=== PATIENT | female | born 1940 | race Caucasian/White ===

== ENCOUNTER → 2017-08-30 | Outpatient (REF) | payer MEDICARE, OTHER ==
[~2017-08-30] MED LIST: AMLO-96 PO; BUDE10.2 INH; CALC-649 PO; CHOL100052 PO; CHOL400C10 PO; EST3 PO; ESTR-33 PO; ESTR0.62 PO; FISH OIL1 CAP PO; GABA-490 PO; HYDR-2966 PO; LEVO50TA86 PO; LIS10 PO; LOSA100T67 PO; LOSA50TA72 PO; MULT-1 PO; NAPR-744 PO; PAN40 PO; PANT40TA65 PO; PROP160C29 PO; WARF-1 PO; [UNRECOGNIZED DRUG - CODE] PO; symbicort IH
[2017-08-30 13:41] LABS: PLATELET COUNT, AUTOMATED 277 K/uL (150-450)
[2017-08-30 13:52] LABS: INR 2.98
== END ==
PROVIDERS: ATTEND Nurse Practitioner Family
DX: R07.9 Chest pain, unspecified (principal); R53.83 Other fatigue
CPT/HCPCS: 82040; 82247; 82310; 82374; 82435; 82565; 82947; 84075; 84132; 84155; 84295; 84443; 84450; 84460; 84484; 84520; 85025; 85379; 85610

== ENCOUNTER 2017-09-04 12:57 | Emergency (ER) | payer MEDICARE, OTHER ==
[~2017-09-04] VITALS: Ht 160 cm; Wt 63.5 kg
[~2017-09-04 12:57] MED LIST changes: -OSE75 PO; -SERT25TA90
[2017-09-04] MEDS ORDERED: SERT25TA90 (13:08)
--- NOTE | 2017-09-04 13:13 | ER Report ---
History and Physical Time Seen By MD: 13:13 Hx. of Stated Complaint: PT REPORTS DIZZINESS, SHORTNESS OF BREATH, WEAKNESS FOR A WEEK (LINDA NICHOLAS-) HPI/ROS CHIEF COMPLAINT: Dizziness HISTORY OF PRESENT ILLNESS: This is a 77-year-old female who presents to the emergency department for dizziness. The patient was seen at [facility] urgent care this morning had a complete workup and decided to come to the emergency department with her for evaluation of her dizziness. The dizziness in addition to weakness have been going on for roughly 1 week according to the patient. The dizziness is only with positional changes. She was started on lasix about 1 week ago, with minimal output after the first 1-2 days. The patient denies shortness of breath at this time. Patient denies chest pain. No aches, chills, cold like symptoms. Patient also states that it has been at least a day or 2 since her last bowel movement, she has been straining to have bowel movements with little production. Patient also states that she's been taking MiraLAX to help with this. REVIEW OF SYSTEMS: Constitutional: No fever, no chills. Eyes: No discharge. ENT: No sore throat. Cardiovascular: No chest pain, no palpitations. Respiratory: No cough, no shortness of breath. Gastrointestinal: As above. Genitourinary: No hematuria. Musculoskeletal: No back pain. Skin: No rashes. Neurological: As above. (LINDA NICHOLAS-SARA) Allergies: Uncoded Allergies: narcotic (Adverse Reaction, Intermediate, nausea with narctics mariel codeine , 06/18/17) Home Meds Active Scripts Oseltamivir Phosphate (TAMIFLU) 75 Mg Cap, 75 MG PO DAILY, #10 CAP Prov:LINDA NICHOLAS 09/04/17 Levothyroxine Sodium (LEVOTHYROXINE SODIUM) 50 Mcg Tablet, 50 MCG PO QDAY, #90 TAB 4 Refills Prov:HUEY CASILLAS MD 08/14/17 Warfarin Sodium (COUMADIN) 5 Mg Tablet, 5 MG PO QDAY for 30 Days, #45 TAB 3 Refills Prov:HUEY CASILLAS MD 08/14/17 Hydrochlorothiazide (HYDROCHLOROTHIAZIDE) 25 Mg Tablet, 0.5 TAB PO QDAY, #30 TAB 3 Refills one half pill daily starting 07/02/17 Prov:HUEY CASILLAS MD 07/09/17 Pantoprazole Sodium (PANTOPRAZOLE SODIUM) 40 Mg Tablet.dr, 1 TAB PO QDAY, #90 TAB.SR 4 Refills Prov:HUEY CASILLAS MD 07/09/17 Reported Medications Sertraline Hcl (SERTRALINE HCL) 25 Mg Tablet, QDAY 09/04/17 Past Medical/Surgical History Patient has a past medical and surgical history of migraines, recently diagnosis of A. fib, hypertension, mild shortness of breath, problems with swallowing and vomiting after eating, acid reflux, hiatal hernia repair, menopause, right ankle injury, right leg injury, wears glasses, hysterectomy, thumb surgery, back surgery, deviated septum repair. (LINDA NICHOLAS [facility]-) Reviewed Nurses Notes: Yes (LINDA NICHOLASP-SARA) Smoking Status: Never Smoker (LINDA NICHOLAS [facility]-) Constitutional Vital Sign - Last 24 Hours 09/04/17 09/04/17 09/04/17 09/04/17 13:03 13:05 13:27 13:30 Temp 98.2 Pulse 105 Resp 18 20 B/P (MAP) 128/81 (97) 128/81 122/85 (97) Pulse Ox 93 97 O2 Delivery Room Air 09/04/17 09/04/17 09/04/17 09/04/17 13:57 14:00 14:10 14:13 Pulse 81 Resp 13 B/P (MAP) 124/85 (98) 107/73 (84) 98/73 (81) 09/04/17 09/04/17 09/04/17 09/04/17 14:15 14:18 14:20 14:50 Pulse 100 104 107 Resp 31 14 B/P (MAP) 88/63 (71) 107/73 (84) 98/73 (81) 88/63 (71) Pulse Ox 49 09/04/17 09/04/17 09/04/17 09/04/17 15:00 15:05 15:10 15:15 Pulse 81 84 86 Resp 12 14 11 B/P (MAP) 128/72 (90) 09/04/17 09/04/17 09/04/17 09/04/17 15:20 15:22 15:23 15:25 Pulse 89 89 Resp 12 13 B/P (MAP) 125/86 (99) 120/75 (90) 111/75 (87) 09/04/17 09/04/17 09/04/17 09/04/17 15:26 15:30 15:35 15:40 Pulse 86 82 91 82 95 93 Resp 14 13 10 B/P (MAP) 125/86 (99) 128/73 (91) 120/75 (90) 111/75 (87) 09/04/17 09/04/17 09/04/17 09/04/17 15:45 15:50 15:55 16:00 Pulse 82 86 86 85 Resp 16 10 9 16 B/P (MAP) 135/67 (89) 09/04/17 16:05 Pulse 80 Resp 13 (JOS PAYNE MD) Physical Exam General Appearance: The patient is alert, has no immediate need for airway protection and no signs of toxicity. Eyes: Pupils equal and round no pallor or injection. ENT, Mouth: Mucous membranes are moist. Dry geographic tongue. Respiratory: There are no retractions, lungs are clear to auscultation. Cardiovascular: Irregular rate and rhythm, no murmurs, clicks or rubs. Gastrointestinal: Abdomen is soft and non tender, no masses, bowel sounds normal. Neurological: Alert and oriented 4. Moving all extremities. Following all commands. No focal neural deficits. Skin: Warm and dry, no rashes. Musculoskeletal: Neck is supple non tender. Extremities are nontender, nonswollen and have full range of motion. DIFFERENTIAL DIAGNOSIS: After history and physical exam differential diagnosis was considered for dizziness including but not limited to peripheral and central causes of vertigo, orthostatic causes including dehydration, and blood loss, constipation. (LINDA NICHOLAS-) Medical Decision Making Data Points Laboratory Hematology Test 09/04/17 14:39 09/04/17 14:40 Urine Color Straw Urine Clarity Clear Urine pH 5.0 pH (4.8-9.5) Urine Specific [place] 1.006 Urine Protein Negative mg/dL (NEGATIVE) Urine Glucose (UA) Negative mg/dL (NEGATIVE) Urine Ketones Trace mg/dL (NEGATIVE) Urine Blood Negative (NEGATIVE) Urine Nitrite Negative (NEGATIVE) Urine Bilirubin Negative (NEGATIVE) Urine Urobilinogen Negative mg/dL (0.2-1.9) Urine Leukocyte Esterase Negative (NEGATIVE) Urine RBC <1 /HPF (0-2/HPF) Urine WBC None /HPF (0-5/HPF) Urine Squamous Epithelial Cells Few /LPF (</=FEW) Urine Bacteria Negative /HPF (NONE-FEW) Urine Hyaline Casts Many /LPF (NONE-FEW) Urine Mucus None /HPF (NONE-FEW) Influenza Type A Antigen Negative (NEGATIVE) Influenza Type B Antigen Negative (NEGATIVE) Chemistry Test 09/04/17 14:39 09/04/17 14:40 Urine Color Straw Urine Clarity Clear Urine pH 5.0 pH (4.8-9.5) Urine Specific [place] 1.006 Urine Protein Negative mg/dL (NEGATIVE) Urine Glucose (UA) Negative mg/dL (NEGATIVE) Urine Ketones Trace mg/dL (NEGATIVE) Urine Blood Negative (NEGATIVE) Urine Nitrite Negative (NEGATIVE) Urine Bilirubin Negative (NEGATIVE) Urine Urobilinogen Negative mg/dL (0.2-1.9) Urine Leukocyte Esterase Negative (NEGATIVE) Urine RBC <1 /HPF (0-2/HPF) Urine WBC None /HPF (0-5/HPF) Urine Squamous Epithelial Cells Few /LPF (</=FEW) Urine Bacteria Negative /HPF (NONE-FEW) Urine Hyaline Casts Many /LPF (NONE-FEW) Urine Mucus None /HPF (NONE-FEW) Influenza Type A Antigen Negative (NEGATIVE) Influenza Type B Antigen Negative (NEGATIVE) Urinalysis Test 09/04/17 14:39 Urine Color Straw Urine Clarity Clear Urine pH 5.0 pH (4.8-9.5) Urine Specific [place] 1.006 Urine Protein Negative mg/dL (NEGATIVE) Urine Glucose (UA) Negative mg/dL (NEGATIVE) Urine Ketones Trace mg/dL (NEGATIVE) Urine Blood Negative (NEGATIVE) Urine Nitrite Negative (NEGATIVE) Urine Bilirubin Negative (NEGATIVE) Urine Urobilinogen Negative mg/dL (0.2-1.9) Urine Leukocyte Esterase Negative (NEGATIVE) Urine RBC <1 /HPF (0-2/HPF) Urine WBC None /HPF (0-5/HPF) Urine Squamous Epithelial Cells Few /LPF (</=FEW) Urine Bacteria Negative /HPF (NONE-FEW) Urine Hyaline Casts Many /LPF (NONE-FEW) Urine Mucus None /HPF (NONE-FEW) (JOS PAYNE MD) EKG/Imaging EKG Interpretation 12 lead EKG: Rhythm: Atrial fibrillation, 98 bpm. [place]: normal QRS: normal ST segments: normal No significant changes from the 08/24/2017 EKG. Imaging FACILITY: [facility] PATIENT NAME: June Overton : 1940 MR: [id number] V: [id number] EXAM DATE: ORDERING PHYSICIAN: LINDA NICHOLAS TECHNOLOGIST: Location: [facility] Patient: June Overton : 1940 Visit/Account:[id number] Date of Sevice: 09/04/2017 Acute abdomen with chest: HISTORY: Evaluate for constipation. COMPARISON: Chest x-ray 08/22/2017 FINDINGS: Upright and supine views of the abdomen and frontal view the chest were obtained. Bowel gas pattern is nonspecific without evidence of ileus, obstruction or free air. There is a small volume of stool in the descending and rectosigmoid colon. There are no calcifications identified of the kidneys or along the expected course of the ureters. Lumbar scoliosis convex to the right is present. Mild degenerative changes are present in the lumbar spine. Cardia mediastinal silhouette is within normal limits. There is no infiltrate, pleural effusion or pneumothorax. Pulmonary vasculature is normal. IMPRESSION: 1. Nonspecific bowel gas pattern. There is only a small volume of stool the colon which is nonspecific. There are no definitive findings of constipation. 2. No evidence of acute cardiopulmonary abnormality. Report Dictated By: Nguyen Agrawal MD at 09/04/2017 2:40 PM Report E-Signed By: Nguyen Agrawal MD at 09/04/2017 2:44 PM WSN:[id number] (LINDA NICHOLAS WEIGHT CALLER-BC) ED Course/Re-evaluation Clinical Indication for ER IV: Hydration, IV Access ED Course The patient was admitted to a room. A history and physical were obtained. Differential diagnoses were considered. IV was started. A 500 mL bolus of normal saline was given. A UA was collected which was negative. An EKG was obtained showing A. fib which was unchanged from her previous EKG. The urgent care lab studies were reviewed with the patient. I did feel at this time that the patient was under hydrated and after the 500 mL bolus of normal saline the patient states her dizziness improved and she was feeling better. Patient was negative for influenza. Her was positive for influenza. We did empirically treat her with Tamiflu. I also instructed the patient to stop her Lasix and continue with her other medications. I was also able to get a follow- up appointment scheduled with Dr. Murillo next week which the patient was pleased with. The patient was also encouraged to return to the emergency department for any other concerns or worsening symptoms. Patient had no other questions or concerns and was discharged home. Decision to Disposition Date: Sep 04, 2017 Decision to Disposition Time: 16:04 (LINDA NICHOLAS) Depart Departure Latest Vital Signs Vital Signs Date Time Temp Pulse Resp B/P (MAP) Pulse Ox O2 Delivery O2 Flow Rate FiO2 09/04/17 16:05 80 13 09/04/17 16:00 135/67 (89) 09/04/17 14:50 49 09/04/17 13:05 98.2 Room Air (JOS PAYNE MD) Impression: Primary Impression: Dehydration Additional Impression: UNSPECIFIED ATRIAL FIBRILLATION Condition: Improved Disposition: HOME OR SELF-CARE Referrals: MARSHALL MURILLO MD New Scripts Oseltamivir Phosphate (TAMIFLU) 75 Mg Cap 75 MG PO DAILY, #10 CAP Prov: LINDA NICHOLAS 09/04/17 Patient Instructions: A-fib (Atrial Fibrillation) (ED), Dehydration (ED) Additional Instructions: Drink plenty of fluids. Get plenty of rest. Stop taking the Lasix or (Furosemide). Continue taking your other medications as directed. Take the Tamiflu as indicated for possible prevention of nemesio the flu. You have a scheduled follow up appointment with Dr. Murillo September 11 at 11:[address]. Dr. Murillo may repeat some lab studies such as INR, your Coumadin level as well as your kidney function. May return to the ED for worsening symptoms. LEAVE SPECIALIST/PA consult with MD: Verbally (JOS PAYNE MD) Problem Qualifiers LINDA NICHOLAS Sep 04, 2017 13:13 JOS PAYNE MD Sep 04, 2017 13:41
[2017-09-04] MEDS ORDERED: NS(*) 0.9% 500 ML BAG 500 ML IV ONE (13:40)
--- NOTE | 2017-09-04 14:48 | RADIOLOGY IMAGING REPORT ---
FACILITY: [facility] [place] PATIENT NAME: June Overton : 1940 MR: [id number] V: [id number] EXAM DATE: ORDERING PHYSICIAN: LINDA NICHOLAS TECHNOLOGIST: Location: [facility] Patient: June Overton : 1940 Visit/Account:[id number] Date of Sevice: 09/04/2017 Acute abdomen with chest: HISTORY: Evaluate for constipation. COMPARISON: Chest x-ray 08/22/2017 FINDINGS: Upright and supine views of the abdomen and frontal view the chest were obtained. Bowel ga s pattern is nonspecific without evidence of ileus, obstruction or free air. There is a small volume of stool in the descending and rectosigmoid colon. There are no calcifications identified of the kidneys or along the expected course of the ureters. Lumbar scoliosis convex to the right is present. Mild degenerative changes are present in the lumbar spine. Cardia mediastinal silhouette is within normal limits. There is no infiltrate, pleural effusion or p neumothorax. Pulmonary vasculature is normal. IMPRESSION: 1. Nonspecific bowel gas pattern. There is only a small volume of stool the colon which is nonspeci fic. There are no definitive findings of constipation. 2. No evidence of acute cardiopulmonary abnormality. Report Dictated By: Nguyen Agrawal MD at 09/04/2017 2:40 PM Report E-Signed By: Nguyen Agrawal MD at 09/04/2017 2:44 PM WSN:[id number]
[2017-09-04 16:00] VITALS: BP 135/67
[2017-09-04] MEDS ORDERED: OSE75 PO (16:14)
--- NOTE | 2017-09-05 08:48 | EKG ---
FACILITY: [facility] [place] PATIENT NAME: LUZ MACIAS : [id number] MR: [id number] V: [id number] EXAM DATE: ORDERING PHYSICIAN: JOS PAYNE TECHNOLOGIST: TAMARA Tai Reason : SOB Blood Pressure : / mmHG Vent. Rate : 098 BPM Atrial Rate : 129 BPM P-R Int : 000 ms QRS Dur : 080 ms QT Int : 374 ms P-R-T Axes : 000 053 035 degrees QTc Int : 477 ms Atrial fibrillation Prolonged QT Abnormal ECG Confirmed by LILLIAN HANKINS ([id number]) on 09/05/2017 12:08:54 PM Referred By: ELMER Confirmed By:LILLIAN HANKINS
== END 2017-09-04 16:18 | disposition home or self-care (01) ==
LOC: ER 13:08
DX: I48.91 Unspecified atrial fibrillation (principal); E86.0 Dehydration
CPT/HCPCS: 74022; 81001; 87502; 93005; 96360; 96361; 99284; J7040

== ENCOUNTER → 2017-09-04 | Outpatient (REF) | payer MEDICARE, OTHER ==
[~2017-09-04] MED LIST changes: +OSE75 PO; +SERT25TA90
[2017-09-04 11:49] LABS: PLATELET COUNT, AUTOMATED 302 K/uL (150-450)
== END ==
PROVIDERS: ATTEND Nurse Practitioner Family
DX: R06.02 Shortness of breath (principal)
CPT/HCPCS: 82040; 82247; 82310; 82374; 82435; 82565; 82947; 83880; 84075; 84132; 84155; 84295; 84450; 84460; 84484; 84520; 85025

== ENCOUNTER → 2017-09-11 | Outpatient (CLI) | payer MEDICARE, OTHER ==
[~2017-09-11] MED LIST changes: +OSE75 PO; +POTA20TA10 PO; +SERT25TA90
== END ==
LOC: LAB 13:08
PROVIDERS: ATTEND Family Medicine
DX: S37.009A Unspecified injury of unspecified kidney, initial encounter (principal)
CPT/HCPCS: 36415; 82040; 82247; 82310; 82374; 82435; 82565; 82947; 84075; 84132; 84155; 84295; 84450; 84460; 84520

== ENCOUNTER → 2017-09-25 | Outpatient (CLI) | payer MEDICARE, OTHER ==
[2017-09-25 09:31] LABS: INR 1.32
== END ==
LOC: LAB 08:43
PROVIDERS: ATTEND Family Medicine
DX: Z51.81 Encounter for therapeutic drug level monitoring (principal); Z79.01 Long term (current) use of anticoagulants; E78.6 Lipoprotein deficiency; E86.0 Dehydration
CPT/HCPCS: 36415; 82040; 82247; 82310; 82374; 82435; 82565; 82947; 84075; 84132; 84155; 84295; 84450; 84460; 84520; 85610

== ENCOUNTER → 2017-09-27 | Outpatient (CLI) | payer MEDICARE, OTHER ==
[~2017-09-27] MED LIST changes: +METO25TA23 PO; +METO25TA93 PO
== END ==
LOC: RESP 08:00
PROVIDERS: ATTEND Family Medicine
DX: Z02.9 Encounter for administrative examinations, unspecified (principal)

== ENCOUNTER → 2017-10-24 | Outpatient (CLI) | payer MEDICARE, OTHER | LOC: LAB 11:18 | PROVIDERS: ATTEND Anesthesiology | DX: Z01.812 Encounter for preprocedural laboratory examination (principal); M19.90 Unspecified osteoarthritis, unspecified site; M79.672 Pain in left foot | CPT/HCPCS: 36415; 82040; 82247; 82310; 82374; 82435; 82565; 82947; 84075; 84132; 84155; 84295; 84450; 84460; 84520 ==

== ENCOUNTER → 2017-12-13 | Outpatient (CLI) | payer MEDICARE, OTHER ==
[~2017-12-13] MED LIST changes: +PANT20TA27 PO
== END ==
LOC: LAB 10:10
PROVIDERS: ATTEND Family Medicine
DX: R39.15 Urgency of urination (principal); R35.0 Frequency of micturition; R30.0 Dysuria
CPT/HCPCS: 81001

== ENCOUNTER → 2018-01-24 | Outpatient (CLI) | payer MEDICARE, OTHER ==
[~2018-01-24] MED LIST changes: +DICL100G39 TOP; +LISI5TAB25 PO; +OXYGENHOME INH
[2018-01-24 09:29] LABS: PLATELET COUNT, AUTOMATED 255 K/uL (150-450)
--- NOTE | 2018-01-24 09:58 | RADIOLOGY IMAGING REPORT ---
FACILITY: [facility] [place] PATIENT NAME: June Overton : 1940 MR: [id number] V: [id number] EXAM DATE: ORDERING PHYSICIAN: MARSHALL MURILLO TECHNOLOGIST: Location: [facility] [place] Patient: June Overton : 1940 Visit/Account:[id number] Date of Sevice: 01/24/2018 Technique: CHEST PA AND LAT HISTORY: SOB, h/o asthma Comparison studies: Chest radiographs August 22, 2017, CTA chest May 23, 2017 FINDINGS: Hazy bibasilar opacities are noted. The lung apices are clear. The cardiomediastinal silh ouette is unchanged. IMPRESSION: 1. Hazy bibasilar opacities which may be secondary to small pleural effusions. Additional considera tions include atelectasis or airspace process such as pneumonia. Report Dictated By: Chico Ramsey DO at 01/24/2018 9:52 AM Report E-Signed By: Chico Ramsey DO at 01/24/2018 9:55 AM WSN:[id number]
== END ==
LOC: LAB 08:58
PROVIDERS: ATTEND Family Medicine
DX: R91.8 Other nonspecific abnormal finding of lung field (principal); I10 Essential (primary) hypertension; R06.02 Shortness of breath
CPT/HCPCS: 36415; 71046; 82040; 82247; 82310; 82374; 82435; 82565; 82947; 84075; 84132; 84155; 84295; 84450; 84460; 84520; 85025

== ENCOUNTER → 2018-01-30 | Outpatient (CLI) | payer MEDICARE, OTHER ==
[~2018-01-30] MED LIST changes: +REGADENOSON 0.4 MG/5 ML SYR ONE
--- NOTE | 2018-01-30 15:13 | RT STRESS TEST REPORT ---
[place] [facility] [place] NAME: LUZ MACIAS : [id number] MR: [id number] V: [id number] EXAM DATE: ORDERING PHYSICIAN: MARSHALL MURILLO TECHNOLOGIST: Jazmyn Acquisition Time: 2018-01-30 14:21:24 Total Exercise Time: 00:01:00 Test Indications: Dyspnea Medications: SEE NUCLEAR MED SHEET Protocol: LEXISCAN Max HR: 115 BPM 81% of Pred: 141 BPM Max BP: 207/104 mmHG Max Work Load: 1.0 METS Stress performed using Lexiscan protocol. She experienced chest and jaw tightness with the infusion. Her symptoms resolved quickly. Baseline EKG shows atrial fibrillation with controlled ventricular response. No significant ST-T changes were not ed. Await Myoview images. Confirmed by LILLIAN HANKINS ([id number]) on 01/30/2018 3:13:02 PM Referred By: Overread By: LILLIAN HANKINS
--- NOTE | 2018-01-30 16:38 | RADIOLOGY IMAGING REPORT ---
FACILITY: [facility] PATIENT NAME: June Overton : 1940 MR: [id number] V: [id number] EXAM DATE: ORDERING PHYSICIAN: MARSHALL MURILLO TECHNOLOGIST: [place] [facility] [place] Patient: June Overton : 1940 Visit/Account:[id number] Date of Sevice: 01/30/2018 EXAMINATION: Single isotope SPECT imaging with regadenoson infusion and gated SPECT imaging. DATE OF EXAMINATION: January 30, 2018. DATE OF INTERPRETATION: January 30, 2018. REQUESTING PHYSICIAN: MARSHALL MURILLO. INDICATION: The patient is a 77-year-old female evaluated for shortness of breath. PROCEDURE: After informed consent the patient received an intravenous injection of 12.2 mCi of Tc-99 m sestamibi followed at an appropriate time interval by rest imaging. The patient then subsequently received an intravenous infusion of 0.4 mg of regadenoson per protocol without complication. Resting heart rate was 81 bpm with a peak heart rate of 115 bpm. Blood pressure at rest was 207 / 104 and f ollowing infusion was 144 / 88. Baseline EKG demonstrates atrial fibrillation. There were no EKG ch anges of ischemia following infusion. Symptoms were nonspecific. The patient then received an intra venous injection of 30.8 mCi of Tc-99m sestamibi followed by stress imaging. RAW DATA: Examination of the summed raw data revealed a good quality study. MYOCARDIAL PERFUSION: The tomographic images demonstrate a mild decrease in myocardial perfusion tra cer uptake in the mid apical anterior wall seen on both stress and rest images. No reversible defect noted. GATED IMAGES: The gated images demonstrate an ejection fraction greater than 70% with no wall motion abnormality. IMPRESSION: 1. Normal myocardial perfusion scan with no evidence of ischemia. The mild fixed defect in the mid a pical anterior wall is likely breast attenuation artifact 2. Normal myocardial perfusion scan. 3. Normal LV systolic function; LVEF greater than 70%. 4. Based on the results of this exam, the patient appears to be at low risk for future cardiovascular events. Report Dictated By: Krysten Hyde at 01/30/2018 4:32 PM Report E-Signed By: Krysten Hyde at 01/30/2018 4:34 PM WSN:[id number]
== END ==
LOC: NUC 01:22
PROVIDERS: ATTEND Family Medicine
DX: R06.02 Shortness of breath (principal)
CPT/HCPCS: 78452; 93017; A9500; J2785

== ENCOUNTER → 2018-03-14 | Outpatient (CLI) | payer MEDICARE, OTHER ==
[~2018-03-14] MED LIST changes: +LISI20TA29 PO; -REGADENOSON 0.4 MG/5 ML SYR ONE
--- NOTE | 2018-03-14 13:58 | RADIOLOGY IMAGING REPORT ---
FACILITY: [facility] [place] PATIENT NAME: LUZ MACIAS : [id number] MR: [id number] V: [id number] EXAM DATE: ORDERING PHYSICIAN: MARSHALL MURILLO TECHNOLOGIST: Naz Mcarthur PROCEDURE:BILATERAL DIGITAL SCREENING MAMMOGRAM WITH CAD ASSISTED INTERPRETATION & 3D TOMOSYNTHESIS COMPARISON:Prior mammogram 09/02/14, 06/11/13, 03/22/12 INDICATIONS:screening FINDINGS: The breasts have scattered fibroglandular parenchymal densities. There are no mammographic findings concerning for malignancy. No significant interval change. DIAGNOSTIC CATEGORY 1--NEGATIVE. RECOMMENDATIONS: ROUTINE MAMMOGRAM AND CLINICAL EVALUATION IN 1 YEAR. IMPRESSION: BIRADS 1: Negative. Dictated by: Castro Duffy on 03/14/2018 at 13:43 Transcribed by: SADAF on 03/14/2018 at 13:56 Approved by: Castro Duffy on 03/14/2018 at 13:57 [facility]
== END ==
LOC: MAMO 01:55
PROVIDERS: ATTEND Family Medicine
DX: Z12.31 Encounter for screening mammogram for malignant neoplasm of breast (principal)
CPT/HCPCS: 77063; 77067

== ENCOUNTER → 2018-04-10 | Outpatient (CLI) | payer MEDICARE, OTHER ==
[~2018-04-10] MED LIST changes: +DILT120C28 PO
[2018-04-10 09:36] LABS: PLATELET COUNT, AUTOMATED 259 K/uL (150-450)
== END ==
LOC: LAB 09:01
PROVIDERS: ATTEND Family Medicine
DX: R63.4 Abnormal weight loss (principal); E03.9 Hypothyroidism, unspecified
CPT/HCPCS: 36415; 82040; 82247; 82310; 82374; 82435; 82565; 82947; 83036; 83835; 84075; 84132; 84155; 84295; 84443; 84450; 84460; 84520; 85025

== ENCOUNTER → 2018-05-09 | Outpatient (CLI) | payer MEDICARE, OTHER ==
[~2018-05-09] MED LIST changes: +AMLO-111 PO; -AMLO-96 PO; +CHOL10005 PO; +IOPAMIDOL 76% 100 ML INFUS BTL 100 ML ONE; -LOSA100T67 PO; +LOSA100T69 PO; -LOSA50TA72 PO; +LOSA50TA74 PO; +NS(*) 0.9% 50 ML BAG 50 ML ONE
--- NOTE | 2018-05-09 10:54 | RADIOLOGY IMAGING REPORT ---
FACILITY: [facility] [place] PATIENT NAME: June Overton : 1940 MR: [id number] V: [id number] EXAM DATE: ORDERING PHYSICIAN: MARSHALL MURILLO TECHNOLOGIST: Location: [facility] [place] Patient: June Overton : 1940 Visit/Account:[id number] Date of Sevice: 05/09/2018 CHEST/AB/PELV W/WO CONTRAST HISTORY: Weight loss, hot flashes, hilar lymphad ADDITIONAL HISTORY: None. TECHNIQUE: Pre and post administration of IV contrast axial images acquired through the chest abdome n and pelvis during the portal venous phase. Coronal and sagittal reformatting was also performed. D ose Lowering Technique One of the following dose optimization techniques was utilized in the performance of this exam: Autom ated exposure control; adjustment of the mA and/or kV according to the patient's size; or use of an i terative reconstruction technique. Specific details can be referenced in the facility's radiology C T exam operational policy. CONTRAST: 75 mL Isovue-370 COMPARISON: CTA chest August 22, [address] abdomen pelvis January 14, 2009 FINDINGS: CHEST: Lungs/Pleura: Again noted is symmetric biapical pleural thickening is a small amount linear scarring versus atelectasis the right lower lobe Mediastinum/lymph nodes: The previously noted right hilar lymph node now measures 9 x 10 x 10 mm as opposed to 9 x 19 x 14 mm. Previous left hilar lymph node now measures 9 x 1 x 16 mm previously 9 x 10 x 20 mm. Previous AP window lymph node now measures 1.2 x 0.7 x 0.8 mm previously 13 x 11 x 11 mm . 10 x 7 x 8 mm precarinal lymph node has remained stable Heart/vessels: Negative. Bones/soft tissues: Levoconvex scoliosis at the thoracal lumbar junction. Post surgical changes the right shoulder ABDOMEN AND PELVIS: Hepatobiliary: The liver was imaged in the arterial phase revealing no gross abnormality Spleen: Negative. Pancreas: Negative. Adrenals: Negative. Kidneys ureters and bladder : No demonstration of urolithiasis hydronephrosis or hydroureter. There is a 2.4 cm lower pole right renal cyst and additional tiny hypodensities in both kidneys that are to o small to characterize Genitalia: Hysterectomy GI: Diverticulosis left-sided colon although no CT evidence of acute diverticulitis. There are pos tsurgical changes at the GE junction. There is a moderate size hiatal hernia appears similar to the prior study. Vessels/spaces/nodes: There are mild vascular calcifications present Bones/soft tissues: Dextroconvex scoliosis at the thoracolumbar junction with extensive spondylotic changes in the lumbar spine Additional findings: None pertinent. IMPRESSION: Previously noted mediastinal adenopathy is decreased in size. No pathologically enlarged adenopathy identified this time Postsurgical changes from hysterectomy post surgical changes of the stomach Moderate size hiatal hernia Diverticulosis left-sided colon although no CT evidence of acute diverticulitis Additional chronic findings as described Report Dictated By: Kassie Snow MD at 05/09/2018 10:32 AM Report E-Signed By: Kassie Snow MD at 05/09/2018 10:50 AM WSN:[email or web address]
== END ==
LOC: CT 00:46
PROVIDERS: ATTEND Family Medicine
DX: K44.9 Diaphragmatic hernia without obstruction or gangrene (principal); Z90.79 Acquired absence of other genital organ(s); Z98.890 Other specified postprocedural states; K57.30 Diverticulosis of large intestine without perforation or abscess without bleeding; I25.10 Atherosclerotic heart disease of native coronary artery without angina pectoris; M41.85 Other forms of scoliosis, thoracolumbar region; M47.896 Other spondylosis, lumbar region
CPT/HCPCS: 71270; 74178; J7050; Q9967

== ENCOUNTER → 2018-07-01 | Outpatient (CLI) | payer MEDICARE, OTHER ==
[~2018-07-01] MED LIST changes: -IOPAMIDOL 76% 100 ML INFUS BTL 100 ML ONE; -NS(*) 0.9% 50 ML BAG 50 ML ONE
== END ==
LOC: LAB 16:03
PROVIDERS: ATTEND Family Medicine
DX: R63.4 Abnormal weight loss (principal); I10 Essential (primary) hypertension; R23.2 Flushing
CPT/HCPCS: 36415; 82310; 82374; 82435; 82565; 82947; 84132; 84295; 84439; 84443; 84481; 84520

== ENCOUNTER → 2018-07-30 | Outpatient (CLI) | payer MEDICARE, OTHER ==
[~2018-07-30] MED LIST changes: +DILT240C76 PO; +VENL37.53 PO
[2018-07-30 11:04] LABS: INR 1.16
== END ==
LOC: LAB 10:10
PROVIDERS: ATTEND Family Medicine
DX: Z51.81 Encounter for therapeutic drug level monitoring (principal)
CPT/HCPCS: 36415; 85610

== ENCOUNTER → 2018-10-07 | Outpatient (CLI) | payer MEDICARE, OTHER ==
[~2018-10-07] MED LIST changes: -AMLO-111 PO; +AMLO-125 PO; -LOSA100T69 PO; +LOSA100T75 PO; -LOSA50TA74 PO; +LOSA50TA80 PO; +RANI-318 PO; +SPIR25TA76 PO; +SPIR25TA80 PO; +VENL75CA4 PO
== END ==
LOC: LAB 13:30
PROVIDERS: ATTEND Family Medicine
DX: I10 Essential (primary) hypertension (principal)
CPT/HCPCS: 36415; 82310; 82374; 82435; 82565; 82947; 84132; 84295; 84520

== ENCOUNTER 2018-11-20 14:14 | Emergency (ER) | payer MEDICARE, OTHER ==
[2018-11-20] MEDS ORDERED: ASPIRIN 81 MG CHEW PO ONE (14:30)
--- NOTE | 2018-11-20 14:32 | ER Report ---
History and Physical Time Seen By MD: 14:31 Hx. of Stated Complaint: OUTPATIENT CHEST X RAY TODAY- REFERRAL BY [facility]. HPI/ROS CHIEF COMPLAINT: Chest pain HISTORY OF PRESENT ILLNESS: 78-year-old female 3 weeks of nonproductive coughing is having left-sided parasternal chest discomfort only when she is coughing reproducible palpation no shortness of breath no chest pressure nausea vomiting no significant cardiac abnormality or history patient has no additional complaints pain is sharp and stabbing localized the left parasternal area full reproducible with palpation REVIEW OF SYSTEMS: Respiratory: No cough, no dyspnea. Cardiovascular: As pain or palpitation Gastrointestinal: No vomiting, no abdominal pain. Musculoskeletal: No back pain. Remainder of the 14 system rev: Yes Allergies: Coded Allergies: amlodipine (Verified Allergy, Unknown, 11/20/18) hydrochlorothiazide (Verified Allergy, Unknown, 11/20/18) olmesartan (Verified Allergy, Unknown, 11/20/18) oxycodone (Verified Allergy, Unknown, 11/20/18) tramadol (Verified Allergy, Unknown, 11/20/18) Uncoded Allergies: narcotic (Adverse Reaction, Intermediate, nausea with narctics mariel codeine, 06/18/17) Home Meds Active Scripts Spironolactone (SPIRONOLACTONE) 25 Mg Tablet, 0.5 TAB PO QAM for 90 Days, #45 TAB 4 Refills Prov:MARSHALL MURILLO MD 11/18/18 Ranitidine Hcl (RANITIDINE HCL) 150 Mg Tablet, 150 MG PO QHS for 90 Days, #90 TAB Prov:MARSHALL MURILLO MD 10/07/18 Lisinopril (LISINOPRIL) 20 Mg Tablet, 1 TAB PO BID for 90 Days, #90 TAB 4 Refills Prov:MARSHALL MURILLO MD 08/08/18 Diltiazem Hcl (DILTIAZEM 24HR ER) 240 Mg Cap.er.24h, 240 MG PO QDAY for 90 Days, #90 CAP.SR.24H 4 Refills Prov:MARSHALL MURILLO MD 07/15/18 Warfarin Sodium (COUMADIN) 5 Mg Tablet, 5 MG PO DIRECTED for 30 Days, #30 TAB 4 Refills Prov:MARSHALL MURILLO MD 05/09/18 Metoprolol Tartrate (METOPROLOL TARTRATE) 25 Mg Tablet, 1 TAB PO BID for 30 Days, #180 TAB 4 Refills Prov:OLIVIA RICHMOND PHARMD 01/09/18 Reported Medications Cholecalciferol (Vitamin D3) (VITAMIN D3) Unknown Strength Tablet, 1 TAB PO, TAB 05/02/18 Oxygen (OXYGEN) Inha, 2 L INH HS, L 12/26/17 Reviewed Nurses Notes: Yes Old Medical Records Reviewed: Yes Smoking Status: Never Smoker Constitutional Vital Sign - Last 24 Hours 11/20/18 14:23 Temp 98.0 Pulse 62 Resp 20 B/P (MAP) 110/65 Pulse Ox 97 O2 Delivery Room Air Physical Exam General Appearance: The patient is alert, has no immediate need for airway protection and no current signs of toxicity. [ ] Eyes: Pupils equal and round no injection. Respiratory: Chest is non tender, lungs are clear to auscultation. Cardiac: Regular rate and rhythm chest wall examination shows significant pain and tenderness to direct palpation of the left para costal sternal area as to what probable costochondritis[ ] Gastrointestinal: Abdomen is soft and non tender, no masses, bowel sounds normal. Musculoskeletal: Neck: Neck is supple and non tender. Extremities have full range of motion and are non tender. Skin: No rashes or lesions. [ ] DIFFERENTIAL DIAGNOSIS: After history and physical exam differential diagnosis was considered for costochondritis myocardial infarction pulmonary embolus Medical Decision Making Data Points Result Diagram: 11/20/18 1439 11/20/18 1439 Laboratory Hematology Test 11/20/18 14:39 Red Blood Count 4.95 M/uL (4.17-5.56) Mean Corpuscular Volume 88.3 fL (80.0-96.0) Mean Corpuscular Hemoglobin 29.0 pg (26.0-33.0) Mean Corpuscular Hemoglobin Concent 32.9 g/dL (32.0-36.0) Red Cell Distribution Width 16.6 % (11.5-14.5) Mean Platelet Volume 7.9 fL (7.2-11.1) Neutrophils (%) (Auto) 70.0 % (39.4-72.5) Lymphocytes (%) (Auto) 19.0 % (17.6-49.6) Monocytes (%) (Auto) 8.3 % (4.1-12.4) Eosinophils (%) (Auto) 1.5 % (0.4-6.7) Basophils (%) (Auto) 1.2 % (0.3-1.4) Nucleated RBC Relative Count (auto) 0.0 /100WBC Neutrophils # (Auto) 5.4 K/uL (2.0-7.4) Lymphocytes # (Auto) 1.5 K/uL (1.3-3.6) Monocytes # (Auto) 0.6 K/uL (0.3-1.0) Eosinophils # (Auto) 0.1 K/uL (0.0-0.5) Basophils # (Auto) 0.1 K/uL (0.0-0.1) Nucleated RBC Absolute Count (auto) 0.00 K/uL Peripheral Blood Smear No Y/N D-Dimer Quantitative (PE/DVT) 0.27 ug/ml (0-0.50) Sodium Level 140 mmol/L (137-145) Potassium Level 4.3 mmol/L (3.5-5.0) Chloride Level 108 mmol/L (98-107) Carbon Dioxide Level 23 mmol/L (22-31) Blood Urea Nitrogen 18 mg/dl (7-18) Creatinine 1.40 mg/dl (0.52-1.04) Glomerular Filtration Rate Calc 36.2 Random Glucose 131 mg/dl (75-110) Calcium Level 9.1 mg/dl (8.4-10.2) Total Bilirubin 0.4 mg/dl (0.2-1.3) Aspartate Amino Transf (AST/SGOT) 37 U/L (0-35) Alanine Aminotransferase (ALT/SGPT) 46 U/L (0-56) Alkaline Phosphatase 98 U/L (0-126) Troponin I < 0.012 ng/ml Total Protein 6.8 g/dl (6.3-8.2) Albumin 4.0 g/dl (3.5-5.0) Chemistry Test 11/20/18 14:39 White Blood Count 7.7 k/uL (4.5-11.0) Red Blood Count 4.95 M/uL (4.17-5.56) Hemoglobin 14.4 g/dL (12.0-16.0) Hematocrit 43.7 % (34.0-47.0) Mean Corpuscular Volume 88.3 fL (80.0-96.0) Mean Corpuscular Hemoglobin 29.0 pg (26.0-33.0) Mean Corpuscular Hemoglobin Concent 32.9 g/dL (32.0-36.0) Red Cell Distribution Width 16.6 % (11.5-14.5) Platelet Count 312 K/uL (150-450) Mean Platelet Volume 7.9 fL (7.2-11.1) Neutrophils (%) (Auto) 70.0 % (39.4-72.5) Lymphocytes (%) (Auto) 19.0 % (17.6-49.6) Monocytes (%) (Auto) 8.3 % (4.1-12.4) Eosinophils (%) (Auto) 1.5 % (0.4-6.7) Basophils (%) (Auto) 1.2 % (0.3-1.4) Nucleated RBC Relative Count (auto) 0.0 /100WBC Neutrophils # (Auto) 5.4 K/uL (2.0-7.4) Lymphocytes # (Auto) 1.5 K/uL (1.3-3.6) Monocytes # (Auto) 0.6 K/uL (0.3-1.0) Eosinophils # (Auto) 0.1 K/uL (0.0-0.5) Basophils # (Auto) 0.1 K/uL (0.0-0.1) Nucleated RBC Absolute Count (auto) 0.00 K/uL Peripheral Blood Smear No Y/N D-Dimer Quantitative (PE/DVT) 0.27 ug/ml (0-0.50) Glomerular Filtration Rate Calc 36.2 Calcium Level 9.1 mg/dl (8.4-10.2) Total Bilirubin 0.4 mg/dl (0.2-1.3) Aspartate Amino Transf (AST/SGOT) 37 U/L (0-35) Alanine Aminotransferase (ALT/SGPT) 46 U/L (0-56) Alkaline Phosphatase 98 U/L (0-126) Troponin I < 0.012 ng/ml Total Protein 6.8 g/dl (6.3-8.2) Albumin 4.0 g/dl (3.5-5.0) Coagulation Test 11/20/18 14:39 D-Dimer Quantitative (PE/DVT) 0.27 ug/ml ED Course/Re-evaluation ED Course Medical decision making 78-year-old female came in with pleuritic type chest discomfort d-dimer was negative cardiac drops were negative EKG showed not unremarkable chest x-ray showed a small posterior hernia which is completely benign she is completely reproducible on palpation of the left parasternal area believe this to be strictly costochondroma she's been coughing pretty hard for the last couple weeks but no obvious infiltrate on her x-ray I will start her on anti-inflammatories and will follow with primary care Decision to Disposition Date: Nov 20, 2018 Decision to Disposition Time: 15:39 Depart Departure Latest Vital Signs Vital Signs Date Time Temp Pulse Resp B/P (MAP) Pulse Ox O2 Delivery O2 Flow Rate FiO2 11/20/18 14:23 98.0 62 20 110/65 97 Room Air Impression: Primary Impression: Costochondritis Condition: Improved Disposition: HOME OR SELF-CARE Referrals: MARSHALL MURILLO MD (PCP) 5 Days Patient Instructions: Costochondritis (DC) JESSIKA CARDOSO MD Nov 20, 2018 14:32
[2018-11-20 14:50] LABS: PLATELET COUNT, AUTOMATED 312 K/uL (150-450)
--- NOTE | 2018-11-20 15:03 | EKG ---
FACILITY: [facility] PATIENT NAME: LUZ MACIAS : [id number] MR: [id number] V: [id number] EXAM DATE: ORDERING PHYSICIAN: JESSIKA CARDOSO TECHNOLOGIST: Test Reason : Blood Pressure : / mmHG Vent. Rate : 054 BPM Atrial Rate : 034 BPM P-R Int : 000 ms QRS Dur : 082 ms QT Int : 434 ms P-R-T Axes : 000 059 060 degrees QTc Int : 411 ms Atrial fibrillation Abnormal ECG When compared with ECG of 04-SEP-2017 13:07, Vent. rate has decreased BY 44 BPM Nonspecific T wave abnormality no longer evident in Anterior leads QT has shortened Confirmed by Shalom Tinajero ([id number]) on 11/20/2018 4:46:46 PM Referred By: Confirmed By:Shalom Fontenot
[2018-11-20 15:45] VITALS: BP 85/52
== END 2018-11-20 16:00 | disposition home or self-care (01) ==
LOC: ER 14:22
DX: M94.0 Chondrocostal junction syndrome [Tietze] (principal)
CPT/HCPCS: 84484; 85025; 85379; 93005; 99283; A9270; 82040; 82247; 82310; 82374; 82435; 82565; 82947; 84075; 84132; 84155; 84295; 84450; 84460; 84520

== ENCOUNTER → 2018-11-20 | Outpatient (CLI) | payer MEDICARE, OTHER ==
--- NOTE | 2018-11-20 12:56 | RADIOLOGY IMAGING REPORT ---
FACILITY: PATIENT NAME: June Overton : 1940 MR: [id number] V: [id number] EXAM DATE: ORDERING PHYSICIAN: MARSHALL MURILLO TECHNOLOGIST: Location: [facility] [place] Patient: June Overton : 1940 Visit/Account:[id number] Date of Sevice: 11/20/2018 Chest with lateral, two views. HISTORY: Sternal chest pain. COMPARISON: 01/24/2018. A small hiatal hernia is present posterior to the heart. The heart and mediastinum are otherwise unr emarkable. Pulmonary vessels are unremarkable. The lungs are voluminous. The pleural surfaces are u nremarkable. No pneumothorax. Degenerative changes are present in the spine. Metal anchors are pres ent in the right shoulder. IMPRESSION: Voluminous lungs. Small direct hiatal hernia. Otherwise no evidence of acute cardiopulmonary disease. Report Dictated By: Srinivasa Pena MD at 11/20/2018 12:50 PM Report E-Signed By: Srinivasa Pena MD at 11/20/2018 12:53 PM WSN:[email or web address]
== END ==
LOC: RAD 12:22
PROVIDERS: ATTEND Family Medicine
DX: R07.9 Chest pain, unspecified (principal); R05 Cough
CPT/HCPCS: 71046

== ENCOUNTER → 2018-11-25 | Outpatient (CLI) | payer MEDICARE, OTHER | LOC: LAB 08:21 | PROVIDERS: ATTEND Family Medicine | DX: Z02.9 Encounter for administrative examinations, unspecified (principal) ==

== ENCOUNTER → 2018-11-25 | Outpatient (CLI) | payer MEDICARE, OTHER ==
[2018-11-25 08:52] LABS: INR 5.72
== END ==
LOC: LAB 08:19
PROVIDERS: ATTEND Family Medicine
DX: Z51.81 Encounter for therapeutic drug level monitoring (principal); Z79.01 Long term (current) use of anticoagulants
CPT/HCPCS: 36415; 85610

== ENCOUNTER → 2018-11-29 | Outpatient (CLI) | payer MEDICARE, OTHER ==
[~2018-11-29] MED LIST changes: +CHOL200074 PO
[2018-11-29 11:33] LABS: PLATELET COUNT, AUTOMATED 278 K/uL (150-450)
[2018-11-29 11:43] LABS: INR 1.77
== END ==
LOC: LAB 10:59
PROVIDERS: ATTEND Nurse Practitioner Primary Care
DX: R31.0 Gross hematuria (principal)
CPT/HCPCS: 36415; 81001; 82040; 82247; 82310; 82374; 82435; 82565; 82947; 84075; 84132; 84155; 84295; 84450; 84460; 84520; 85025; 85610

== ENCOUNTER 2018-11-30 01:45 | Inpatient (IN) | payer MEDICARE, OTHER ==
[2018-11-29 04:52] VITALS: BP 148/83
[~2018-11-30] VITALS: Ht 160 cm; Wt 59.2 kg
--- NOTE | 2018-11-30 01:54 | ER Report ---
History and Physical Time Seen By MD: 01:54 Hx. of Stated Complaint: PATIENT HAVING A LOT OF RIGHT LOWER QUADRANT PAIN, NAUSEA, VOMITING, PATIENT HAVING HEMATURIA. HPI/ROS CHIEF COMPLAINT: Abdominal pain and nausea with dry heaves HISTORY OF PRESENT ILLNESS: This is an 78-year-old female. She is having lower abdominal pain tonight that started across her lower abdomen, now localized in the right lower quadrant of the abdomen. She has been having hematuria for about 5 days now, was seen in the outpatient office on . She has been referred to urologist and her Coumadin dose was decreased, although she states that it was stopped and she is not taking it. She is on the Coumadin for atrial fibrillation. She denies any fevers or chills tonight. She did have a bowel movement tonight with a small hard stools, no bowel movement for a few days now prior to this today. She denies any dysuria, just the nestor hematuria that continues and is worsening. No history of kidney stones. Pain seems to ease up if she flexes flexes her knees and hips bringing her legs toward her chest. Pain seems worse with movement. Allergies: Coded Allergies: amlodipine (Verified Allergy, Unknown, 11/20/18) hydrochlorothiazide (Verified Allergy, Unknown, 11/20/18) olmesartan (Verified Allergy, Unknown, 11/20/18) oxycodone (Verified Allergy, Unknown, 11/20/18) tramadol (Verified Allergy, Unknown, 11/20/18) Uncoded Allergies: narcotic (Adverse Reaction, Intermediate, nausea with narctics mariel codeine, 06/18/17) Home Meds Active Scripts Spironolactone (SPIRONOLACTONE) 25 Mg Tablet, 0.5 TAB PO QAM for 90 Days, #45 TAB 4 Refills Prov:MARSHALL MURILLO MD 11/18/18 Ranitidine Hcl (RANITIDINE HCL) 150 Mg Tablet, 150 MG PO QHS for 90 Days, #90 TAB Prov:MARSHALL MURILLO MD 10/07/18 Lisinopril (LISINOPRIL) 20 Mg Tablet, 1 TAB PO BID for 90 Days, #90 TAB 4 Refills Prov:MARSHALL MURILLO MD 08/08/18 Diltiazem Hcl (DILTIAZEM 24HR ER) 240 Mg Cap.er.24h, 240 MG PO QDAY for 90 Days, #90 CAP.SR.24H 4 Refills Prov:MARSHALL MURILLO MD 07/15/18 Warfarin Sodium (COUMADIN) 5 Mg Tablet, 5 MG PO DIRECTED for 30 Days, #30 TAB 4 Refills Prov:MARSHALL MURILLO MD 05/09/18 Metoprolol Tartrate (METOPROLOL TARTRATE) 25 Mg Tablet, 1 TAB PO BID for 30 Days, #180 TAB 4 Refills Prov:OLIVIA RICHMOND PHARMD 01/09/18 Reported Medications Cholecalciferol (Vitamin D3) (VITAMIN D-3) 2,000 Unit Capsule, 1 CAP PO QDAY, CAPSULE 11/28/18 Oxygen (OXYGEN) Inha, 2 L INH HS, L 12/26/17 Discontinued Reported Medications Cholecalciferol (Vitamin D3) (VITAMIN D3) Unknown Strength Tablet, 1 TAB PO, TAB 05/02/18 Reviewed Nurses Notes: Yes Smoking Status: Never Smoker Constitutional Vital Sign - Last 24 Hours 11/29/18 11/30/18 11/30/18 11/30/18 04:52 01:47 01:47 01:55 Temp 98.3 98.1 Pulse 100 123 97 Resp 16 24 26 B/P (MAP) 148/83 (104) 119/90 (100) 119/90 Pulse Ox 94 90 95 O2 Delivery Room Air Room Air Room Air 11/30/18 11/30/18 11/30/18 11/30/18 02:00 02:05 02:10 02:25 Pulse 91 106 103 Resp 28 13 B/P (MAP) 181/121 (141) Pulse Ox 91 94 11/30/18 11/30/18 11/30/18 11/30/18 02:30 03:09 03:10 03:25 Pulse 108 95 Resp 14 14 B/P (MAP) 155/116 (129) 165/105 (125) Pulse Ox 96 91 11/30/18 11/30/18 11/30/18 11/30/18 03:35 03:40 03:53 03:58 Pulse 106 115 103 Resp 22 18 11 B/P (MAP) 163/97 (119) Pulse Ox 94 97 98 11/30/18 04:00 B/P (MAP) 162/88 (112) Physical Exam General Appearance: The patient is alert. Mild acute distress because of her nausea and pain. Eyes: Pupils are equal, round. No pallor, injection or icterus. ENT: Mucous membranes are moist. Normal oral mucosa. Posterior oropharynx is normal. Neck: Supple and non tender. Respiratory: Lungs are clear to auscultation. Cardiovascular: Regular rate and rhythm. No murmurs, gallops or rubs. Normal capillary refill. Gastrointestinal: Abdomen is soft, tender in the right lower quadrant with palpation, tender with percussion in both right and left lower abdomen. Nondistended. Normal active bowel sounds. No costovertebral angle tenderness with percussion. Neurological: Alert and oriented x3. No focal neurologic deficits Skin: Warm and dry. Musculoskeletal: Extremities are nontender. DIFFERENTIAL DIAGNOSIS: After history and physical exam, differential diagnosis was considered for abdominal pain including but not limited to appendicitis, gastroenteritis, obstruction, constipation, kidney stones and urinary tract infection. Medical Decision Making Data Points Result Diagram: 11/30/18 0150 11/30/18 0517 Laboratory Hematology Test 11/30/18 01:50 11/30/18 02:48 Red Blood Count 4.85 M/uL (4.17-5.56) Mean Corpuscular Volume 89.3 fL (80.0-96.0) Mean Corpuscular Hemoglobin 29.4 pg (26.0-33.0) Mean Corpuscular Hemoglobin Concent 32.9 g/dL (32.0-36.0) Red Cell Distribution Width 16.2 % (11.5-14.5) Mean Platelet Volume 8.3 fL (7.2-11.1) Neutrophils (%) (Auto) 52.7 % (39.4-72.5) Lymphocytes (%) (Auto) 35.1 % (17.6-49.6) Monocytes (%) (Auto) 7.5 % (4.1-12.4) Eosinophils (%) (Auto) 3.1 % (0.4-6.7) Basophils (%) (Auto) 1.6 % (0.3-1.4) Nucleated RBC Relative Count (auto) 0.1 /100WBC Neutrophils # (Auto) 3.8 K/uL (2.0-7.4) Lymphocytes # (Auto) 2.6 K/uL (1.3-3.6) Monocytes # (Auto) 0.5 K/uL (0.3-1.0) Eosinophils # (Auto) 0.2 K/uL (0.0-0.5) Basophils # (Auto) 0.1 K/uL (0.0-0.1) Nucleated RBC Absolute Count (auto) 0.01 K/uL Total Bilirubin 0.6 mg/dl (0.2-1.3) Aspartate Amino Transf (AST/SGOT) 25 U/L (0-35) Alanine Aminotransferase (ALT/SGPT) 25 U/L (0-56) Alkaline Phosphatase 133 U/L (0-126) Total Protein 7.7 g/dl (6.3-8.2) Albumin 4.5 g/dl (3.5-5.0) Urine Color Red Urine Clarity Cloudy Urine pH 7.0 pH (4.8-9.5) Urine Specific [place] 1.010 Urine Protein 100 mg/dL (NEGATIVE) Urine Glucose (UA) Negative mg/dL (NEGATIVE) Urine Ketones Negative mg/dL (NEGATIVE) Urine Blood Large (NEGATIVE) Urine Nitrite Negative (NEGATIVE) Urine Bilirubin Negative (NEGATIVE) Urine Urobilinogen 0.2 mg/dL (0.2-1.9) Urine Leukocyte Esterase Negative (NEGATIVE) Urine RBC 9709 /HPF (0-2/HPF) Urine WBC None /HPF (0-5/HPF) Urine Squamous Epithelial Cells None /LPF (</=FEW) Urine Bacteria Negative /HPF (NONE-FEW) Urine Mucus None /HPF (NONE-FEW) Chemistry Test 11/30/18 01:50 11/30/18 02:48 White Blood Count 7.3 k/uL (4.5-11.0) Red Blood Count 4.85 M/uL (4.17-5.56) Hemoglobin 14.3 g/dL (12.0-16.0) Hematocrit 43.3 % (34.0-47.0) Mean Corpuscular Volume 89.3 fL (80.0-96.0) Mean Corpuscular Hemoglobin 29.4 pg (26.0-33.0) Mean Corpuscular Hemoglobin Concent 32.9 g/dL (32.0-36.0) Red Cell Distribution Width 16.2 % (11.5-14.5) Platelet Count 282 K/uL (150-450) Mean Platelet Volume 8.3 fL (7.2-11.1) Neutrophils (%) (Auto) 52.7 % (39.4-72.5) Lymphocytes (%) (Auto) 35.1 % (17.6-49.6) Monocytes (%) (Auto) 7.5 % (4.1-12.4) Eosinophils (%) (Auto) 3.1 % (0.4-6.7) Basophils (%) (Auto) 1.6 % (0.3-1.4) Nucleated RBC Relative Count (auto) 0.1 /100WBC Neutrophils # (Auto) 3.8 K/uL (2.0-7.4) Lymphocytes # (Auto) 2.6 K/uL (1.3-3.6) Monocytes # (Auto) 0.5 K/uL (0.3-1.0) Eosinophils # (Auto) 0.2 K/uL (0.0-0.5) Basophils # (Auto) 0.1 K/uL (0.0-0.1) Nucleated RBC Absolute Count (auto) 0.01 K/uL Total Bilirubin 0.6 mg/dl (0.2-1.3) Aspartate Amino Transf (AST/SGOT) 25 U/L (0-35) Alanine Aminotransferase (ALT/SGPT) 25 U/L (0-56) Alkaline Phosphatase 133 U/L (0-126) Total Protein 7.7 g/dl (6.3-8.2) Albumin 4.5 g/dl (3.5-5.0) Urine Color Red Urine Clarity Cloudy Urine pH 7.0 pH (4.8-9.5) Urine Specific [place] 1.010 Urine Protein 100 mg/dL (NEGATIVE) Urine Glucose (UA) Negative mg/dL (NEGATIVE) Urine Ketones Negative mg/dL (NEGATIVE) Urine Blood Large (NEGATIVE) Urine Nitrite Negative (NEGATIVE) Urine Bilirubin Negative (NEGATIVE) Urine Urobilinogen 0.2 mg/dL (0.2-1.9) Urine Leukocyte Esterase Negative (NEGATIVE) Urine RBC 9709 /HPF (0-2/HPF) Urine WBC None /HPF (0-5/HPF) Urine Squamous Epithelial Cells None /LPF (</=FEW) Urine Bacteria Negative /HPF (NONE-FEW) Urine Mucus None /HPF (NONE-FEW) Urinalysis Test 11/30/18 02:48 Urine Color Red Urine Clarity Cloudy Urine pH 7.0 pH (4.8-9.5) Urine Specific [place] 1.010 Urine Protein 100 mg/dL (NEGATIVE) Urine Glucose (UA) Negative mg/dL (NEGATIVE) Urine Ketones Negative mg/dL (NEGATIVE) Urine Blood Large (NEGATIVE) Urine Nitrite Negative (NEGATIVE) Urine Bilirubin Negative (NEGATIVE) Urine Urobilinogen 0.2 mg/dL (0.2-1.9) Urine Leukocyte Esterase Negative (NEGATIVE) Urine RBC 9709 /HPF (0-2/HPF) Urine WBC None /HPF (0-5/HPF) Urine Squamous Epithelial Cells None /LPF (</=FEW) Urine Bacteria Negative /HPF (NONE-FEW) Urine Mucus None /HPF (NONE-FEW) EKG/Imaging Imaging CT ABDOMEN PELVIS W/O CON HISTORY: Lower abdominal pain, now right lower quadrant. Hematuria. COMPARISON: 05/09/2018 and studies dating to 05/29/2006. TECHNIQUE: Axial images were obtained from the lung bases through the symphysis pubis without intravenous contrast. Sagittal and coronal reformats were performed. One of the following dose optimization techniques was utilized in the performance of this exam: Automated exposure control; adjustment of the mA and/or kV according to the patient's size; or use of an iterative reconstruction technique. Specific details can be referenced in the facility's radiology CT exam operational policy. CONTRAST: None. FINDINGS: Lower chest: Normal. Liver: Normal. Gallbladder/biliary: Normal. Pancreas: Normal. Spleen: Normal. Adrenals: Normal. Kidneys/ureters/bladder: There is mild right hydronephrosis and dilation of the proximal right ureter. There is mild periureteral stranding. No obstructing or nonobstructing calculus. There is high density in a right upper pole calyx (axial image 56 series 2, sagittal image 52, and coronal image 46). There is a 2.2 cm exophytic cyst arising from the inferior right renal cortex. There are small hyperdense cysts of the left kidney. The left ureter and the bladder are normal. GI/mesentery/peritoneal cavity: There is a small to moderate type I hiatal hernia. There are postsurgical changes at the gastroesophageal junction, unchanged. There is no bowel obstruction. There is no wall thickening or pericolonic stranding. The appendix is not identified. There is no pericecal inflammatory change. There is pancolonic diverticulosis without diverticulitis. Vessels: There is mild atherosclerotic disease. No aneurysm. Nodes: Normal. Pelvis: Uterus is absent. Vaginal cuff is normal. Ovaries are normal. There are numerous phleboliths. Bones/vertebra/soft tissues: There is rightward curvature of the thoracolumbar spine. There is degenerative disc disease, greatest at L2-3. There are endplate irregularity and sclerosis at this level. There is severe loss of disc height at this level and at L5-S1. There is 3 mm retrolisthesis of L2 compared to L3. There is stable mild wedging of L1. IMPRESSION: 1. Mild right hydronephrosis and dilation of the proximal right ureter without obstructing or nonobstructing calculus. However, there is high density in a right upper pole calyx, likely hemorrhage. Patient is on Coumadin, and potentially this could be spontaneous hemorrhage, although cannot exclude underlying lesion. If it would alter clinical management, direct visualization could be performed for further evaluation. The hydronephrosis and dilation of the proximal right ureter may be due to a clot in the ureter, although ureteral clot is not discretely visualized. 2. Pancolonic diverticulosis without diverticulitis. 3. Small to moderate type I hiatal hernia. These findings were discussed by phone with JOS PAYNE on 11/30/2018 3:15 AM. Report Dictated By: Anny Starks at 11/30/2018 2:59 AM ED Course/Re-evaluation Clinical Indication for ER IV: Hydration, IV Access ED Course Initial evaluation done as noted. Given a liter of normal saline and Zofran for her nausea. Pain mild initially, but worsening over time. Labs show some renal insufficiency, that looks like it has been present for a few months. INR is down to 1.61, but still with the gross hematuria. She is worried about living along, feeling weaker and would like to consider admission to the hospital. CT scan obtained as noted. Discussed with the radiologist. Consulted with Dr. Giraldo who would be willing to see the patient to evaluate, but needs to have admission with reversal of the Coumadin prior. Discussed with Dr. Shantel Fontenot, who accepted the patient for admission. Decision to Disposition Date: Nov 30, 2018 Decision to Disposition Time: 04:00 Depart Departure Latest Vital Signs Vital Signs Date Time Temp Pulse Resp B/P (MAP) Pulse Ox O2 Delivery O2 Flow Rate FiO2 11/30/18 04:00 162/88 (112) 11/30/18 03:58 103 11 98 11/30/18 01:55 Room Air 11/30/18 01:47 98.1 Impression: Primary Impression: Hematuria Additional Impressions: Anticoagulated on Coumadin CKD (chronic kidney disease) Condition: Condition Unchanged Disposition: Admitted from ER Referrals: MARSHALL MURILLO MD (PCP) Problem Qualifiers Primary Impression: Hematuria Hematuria type: gross Qualified Codes: R31.0 - Gross hematuria Additional Impressions: CKD (chronic kidney disease) Chronic kidney disease stage: unspecified stage Qualified Codes: N18.9 - Chronic kidney disease, unspecified JOS PAYNE MD Nov 30, 2018 01:54
[2018-11-30] MEDS ORDERED: ONDANSETRON 4 MG/2 ML VIAL IVP ONE (02:05)
[2018-11-30] MEDS ORDERED: NS(*) 0.9% 1000 ML BAG 1,000 ML IV ONE (02:05)
[2018-11-30 02:16] LABS: PLATELET COUNT, AUTOMATED 282 K/uL (150-450)
[2018-11-30 02:17] LABS: INR 1.61
--- NOTE | 2018-11-30 03:25 | RADIOLOGY IMAGING REPORT ---
FACILITY: [facility] PATIENT NAME: June Overton : 1940 MR: [id number] V: [id number] EXAM DATE: ORDERING PHYSICIAN: JOS PAYNE TECHNOLOGIST: Location: [facility] Patient: June Overton : 1940 Visit/Account:[id number] Date of Sevice: 11/30/2018 CT ABDOMEN PELVIS W/O CON HISTORY: Lower abdominal pain, now right lower quadrant. Hematuria. COMPARISON: 05/09/2018 and studies dating to 05/29/2006. TECHNIQUE: Axial images were obtained from the lung bases through the symphysis pubis without intrave nous contrast. Sagittal and coronal reformats were performed. One of the following dose optimization techniques was utilized in the performance of this exam: Autom ated exposure control; adjustment of the mA and/or kV according to the patient's size; or use of an i terative reconstruction technique. Specific details can be referenced in the facility's radiology CT exam operational policy. CONTRAST: None. FINDINGS: Lower chest: Normal. Liver: Normal. Gallbladder/biliary: Normal. Pancreas: Normal. Spleen: Normal. Adrenals: Normal. Kidneys/ureters/bladder: There is mild right hydronephrosis and dilation of the proximal right ureter . There is mild periureteral stranding. No obstructing or nonobstructing calculus. There is high dens ity in a right upper pole calyx (axial image 56 series 2, sagittal image 52, and coronal image 46). T here is a 2.2 cm exophytic cyst arising from the inferior right renal cortex. There are small hyperde nse cysts of the left kidney. The left ureter and the bladder are normal. GI/mesentery/peritoneal cavity: There is a small to moderate type I hiatal hernia. There are postsurg ical changes at the gastroesophageal junction, unchanged. There is no bowel obstruction. There is no wall thickening or pericolonic stranding. The appendix is not identified. There is no pericecal infla mmatory change. There is pancolonic diverticulosis without diverticulitis. Vessels: There is mild atherosclerotic disease. No aneurysm. Nodes: Normal. Pelvis: Uterus is absent. Vaginal cuff is normal. Ovaries are normal. There are numerous phleboliths. Bones/vertebra/soft tissues: There is rightward curvature of the thoracolumbar spine. There is degene rative disc disease, greatest at L2-3. There are endplate irregularity and sclerosis at this level. T here is severe loss of disc height at this level and at L5-S1. There is 3 mm retrolisthesis of L2 com pared to L3. There is stable mild wedging of L1. IMPRESSION: 1. Mild right hydronephrosis and dilation of the proximal right ureter without obstructing or nonobst ructing calculus. However, there is high density in a right upper pole calyx, likely hemorrhage. Masha ent is on Coumadin, and potentially this could be spontaneous hemorrhage, although cannot exclude und erlying lesion. If it would alter clinical management, direct visualization could be performed for fu rther evaluation. The hydronephrosis and dilation of the proximal right ureter may be due to a clot i n the ureter, although ureteral clot is not discretely visualized. 2. Pancolonic diverticulosis without diverticulitis. 3. Small to moderate type I hiatal hernia. These findings were discussed by phone with JOS PAYNE on 11/30/2018 3:15 AM. Report Dictated By: Anny Starks at 11/30/2018 2:59 AM Report E-Signed By: Anny Starks at 11/30/2018 3:21 AM WSN:[id number]
[2018-11-30] MEDS ORDERED: APAP/HYDROCODONE 325/5 TAB PO PRN (04:30)
[2018-11-30] MEDS ORDERED: METOCLOPRAMIDE 10 MG/2 ML SDV IVP PRN (04:30)
[2018-11-30] MEDS ORDERED: ACETAMINOPHEN 500 MG TAB PO PRN (04:30)
[2018-11-30] MEDS ORDERED: FLUSH 10 ML SYR IVP PRN (04:30)
[2018-11-30] MEDS ORDERED: PHYTONADIONE 5 MG TAB PO ONE (04:30)
[2018-11-30] MEDS: TAMSULOSIN HCL 0.4 MG CAP PO SCH ×2 (05:11→08:50)
--- NOTE | 2018-11-30 05:29 | History & Physical ---
History of Present Illness Chief Complaint hematuria, abdominal pain History of Present Illness 78F presented with 5 days hematuria and 1 day increased abdominal pain and nausea.PMHx significant for HTN, afib on warfarin, reflux. Reports worsening hematuria and supratherapeutic INR. Abdominal pain worsened and she began feeling nauseated so came to ER. Noted to have gross hematuria, CT showed area consistent with hemorrhage of R upper renal calyx and R proximal hydronephrosis. Denies fever, chills, vomiting. History Problems: (1) Anticoagulated on Coumadin (2) HTN (hypertension) (3) Afib Home Meds Active Scripts Spironolactone (SPIRONOLACTONE) 25 Mg Tablet, 0.5 TAB PO QAM for 90 Days, #45 TAB 4 Refills Prov:MARSHALL MURILLO MD 11/18/18 Ranitidine Hcl (RANITIDINE HCL) 150 Mg Tablet, 150 MG PO QHS for 90 Days, #90 TAB Prov:MARSHALL MURILLO MD 10/07/18 Lisinopril (LISINOPRIL) 20 Mg Tablet, 1 TAB PO BID for 90 Days, #90 TAB 4 Refills Prov:MARSHALL MURILLO MD 08/08/18 Diltiazem Hcl (DILTIAZEM 24HR ER) 240 Mg Cap.er.24h, 240 MG PO QDAY for 90 Days, #90 CAP.SR.24H 4 Refills Prov:MARSHALL MURILLO MD 07/15/18 Warfarin Sodium (COUMADIN) 5 Mg Tablet, 5 MG PO DIRECTED for 30 Days, #30 TAB 4 Refills Prov:MARSHALL MURILLO MD 05/09/18 Metoprolol Tartrate (METOPROLOL TARTRATE) 25 Mg Tablet, 1 TAB PO BID for 30 Days, #180 TAB 4 Refills Prov:OLIVIA RICHMOND PHARMD 01/09/18 Reported Medications Cholecalciferol (Vitamin D3) (VITAMIN D-3) 2,000 Unit Capsule, 1 CAP PO QDAY, CAPSULE 11/28/18 Oxygen (OXYGEN) Inha, 2 L INH HS, L 12/26/17 Discontinued Reported Medications Cholecalciferol (Vitamin D3) (VITAMIN D3) Unknown Strength Tablet, 1 TAB PO, TAB 05/02/18 Allergies: Coded Allergies: amlodipine (Verified Allergy, Unknown, 11/20/18) hydrochlorothiazide (Verified Allergy, Unknown, 11/20/18) olmesartan (Verified Allergy, Unknown, 11/20/18) oxycodone (Verified Allergy, Unknown, 11/20/18) tramadol (Verified Allergy, Unknown, 11/20/18) Uncoded Allergies: narcotic (Adverse Reaction, Intermediate, nausea with narctics mariel codeine, 06/18/17) Smoking Status: Never Smoker Caffeine Intake: Coffee, Tea Caffeine/Cups Per Day: 1 Social Drug Use: Never Review of Systems Gastrointestinal: Nausea Genitourinary: Hematuria Exam Vital Signs Vital Signs Date Time Temp Pulse Resp B/P (MAP) Pulse Ox O2 Delivery O2 Flow Rate FiO2 11/30/18 03:53 115 18 97 11/30/18 03:35 163/97 (119) 11/30/18 01:55 Room Air 11/30/18 01:47 98.1 General Appearance: Alert, Awake, No Acute Distress, Afebrile Neuro: No Gross deficits ENT: Normal Cardiovascular: Other (irregularly irregular) Respiratory: No Respiratory Distress GI: Abd Soft and Non-Tender Extremities: Soft and Non Tender, Warm, Pulses, Perfused Medical Decision Making Data Points Result Diagram: 11/30/18 0150 11/30/18 0150 Assessment and Plan Problems: (1) Hematuria Assessment & Plan: Likely due to spontaneous hemorrhage due to elevated INR, mass can not be excluded. Given 5mg vitamin K PO. Will monitor output. Dr Giraldo to see her in am. (2) Supratherapeutic INR Assessment & Plan: Reportedly up to 5.9 recently. Will hold warfarin and reverse in anticipation of intervention and presence of minor bleeding. (3) Hydroureter Assessment & Plan: Likely due to clot in proximal ureter. Dr Giraldo to see and likely will undergo cystoscopy. Started tamsulosin, gentle hydration, monitor Cr. (4) Afib Assessment & Plan: On diltiazem and metoprolol. Holding warfarin. (5) HTN (hypertension) Assessment & Plan: On metoprolol, holding spironolactone and lisinopril until obstruction resolved. (6) CKD (chronic kidney disease) Assessment & Plan: Cr 1.4 at baseline, will monitor closely as an increase would need more urgent intervention to relieve obstruction. Venous Thromboembolism Antithrombotics Is Pt On Any Antithrombotics?: No Prophylaxis Tx Contraindicated Pharmacological Contraindicati: Active Bleeding Exam Sepsis Risk: No Definite Risk GIORGIO HERRERA DO Nov 30, 2018 05:29
[2018-11-30 07:14] VITALS: BP 150/81
[2018-11-30 08:26] LABS: INR 1.58
[2018-11-30] MEDS: DOCUSATE SODIUM 100 MG CAP PO SCH ×2 (08:50→20:29)
[2018-11-30] MEDS: POLYETHYLENE GLYCOL 17 GM PKT PO SCH (08:51)
[2018-11-30] MEDS: CHOLECALCIFEROL 1000 UNIT TAB PO SCH (08:51)
[2018-11-30] MEDS: METOPROLOL TART 50 MG TAB PO SCH ×2 (08:52→20:29)
[2018-11-30] MEDS: DILTIAZEM CD 120 MG CAPCR PO SCH (08:52)
[2018-11-30 11:04] VITALS: BP 115/45
[2018-11-30] MEDS: NS(*) 0.9% 1000 ML BAG 1,000 ML IV PRN ×2 (11:11→23:52)
[2018-11-30 15:18] VITALS: BP 109/53
[2018-11-30 16:24] VITALS: BP 130/71
--- NOTE | 2018-11-30 17:42 | CONSULTATION ---
EVENT DATE: November 30, 2018 REASON FOR CONSULTATION Gross hematuria. 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 History is significant for anticoagulation with Coumadin secondary to AFib. She stated that she had approximately five days of a gross painless hematuria; however, this did not resolve, and she began to experience pain yesterday and sought evaluation in the Emergency Room. She is followed by Dr. Ivey in the clinic, who noted her to be over anticoagulated and had adjusted her Coumadin dosing. On the , her INR was 5.72, and her PT was 53.3. When seen in the Emergency Room, her INR had decreased to 1.6, and her PT was 19.4. The patient states that she had not taken her Coumadin for two days. Her creatinine was slightly elevated at 1.4. A CT scan was performed in the Emergency Room without IV contrast. It revealed no kidney stones or kidney masses. The right collecting system was mildly dilated down to the proximal ureter with some mild periureteral stranding. He was also noted to have a high density in the right upper pole calyx. Interpretation was consistent with her history of a likely hemorrhage in the upper pole calyx, resulting in likely proximal ureteral clot. The patient was admitted by the hospitalist service for observation and correction of her anticoagulation. Her hematocrit was 43 on admission, and her vital signs were stable. When seen this morning, Ms. Overton was without pain or discomfort. She states that the right lower quadrant pain she had early in the morning had resolved. She was still having gross painless hematuria which appeared dark nguyen in color. She denied prior episodes of hematuria or kidney stones. Of note, she did have a chest, abdomen, and pelvis CT scan with and without IV contrast in April 2018 which revealed normal renal parenchyma bilaterally without evidence of masses, stones, or obstruction. There were no delayed images obtained. PAST MEDICAL HISTORY 1. Dysphagia with irritable bowel syndrome. 2. AFib. 3. Hypertension. 4. Obstructive sleep apnea. 5. Gastroesophageal reflux disease. 6. Degenerative joint disease. 7. Hypothyroidism. PAST SURGICAL HISTORY 1. Deviated septum repair. 2. Tonsillectomy. 3. Hiatal hernia repair. 4. Colonoscopy and EGD. 5. Right ankle and foot surgery. 6. L-spine surgery. CURRENT MEDICATIONS ON ADMISSION 1. Diltiazem. 2. Lisinopril. 3. Metoprolol. 4. Oxygen. 5. Zantac. 6. Spironolactone. 7. Warfarin. ALLERGIES HYDROCHLOROTHIAZIDE, AMLODIPINE, TRAMADOL, NARCOTICS WITH OXYCODONE, and BENICAR. SOCIAL HISTORY Patient lives in [place], [place]. She is a recent . Denies tobacco use. REVIEW OF SYSTEMS Patient denies productive cough, chest pain, shortness of breath, change in weight, chronic headaches, or liver disease. PHYSICAL EXAMINATION GENERAL: Patient is a well-developed, well-nourished, white female in no acute distress. HEENT: Normocephalic, atraumatic. CHEST: Clear to auscultation bilaterally. CARDIOVASCULAR: Regular rate and rhythm. ABDOMEN: Soft, nontender. No masses are palpated. GENITOURINARY: Deferred. EXTREMITIES: Without clubbing, cyanosis, or edema. NEUROLOGIC: Nonfocal. IMPRESSION An 78-year-old white female with recent episode of over anticoagulation, now with gross hematuria. Her pain has resolved. This was most likely secondary to ureteral clot passing. She continues to have some gross hematuria, but is hemodynamically stable, and her INR is normalizing. It is unclear if she just has an episode of hematuria from the over anticoagulation, or this has unmasked a small intrarenal lesion, such as a transitional cell carcinoma. She has no significant risk factors for this, but this will be high on the differential as opposed to other less common events such as a small renal cell carcinoma or arteriovenous malformation type lesion. RECOMMENDATIONS Would continue to reverse the patient's anticoagulation until her urine is clear and monitor her creatinine and hemoglobin with vital signs. If her hematuria clears over the next day or two, then we can electively proceed with further evaluation with either a CT scan with IV contrast giving delayed images or anesthetic cystoscopy with retrograde pyelogram and/or ureteroscopy as indicated. XI
[2018-11-30 20:00] VITALS: BP 112/54
[2018-11-30] MEDS: RANITIDINE HCL 150 MG TAB PO SCH (20:29)
[2018-12-01 00:01] VITALS: BP 114/63
[2018-12-01 06:00] VITALS: BP 134/66
[2018-12-01 06:04] LABS: INR 1.19
[2018-12-01] MEDS: DILTIAZEM CD 120 MG CAPCR PO SCH (08:38)
[2018-12-01] MEDS: METOPROLOL TART 50 MG TAB PO SCH ×2 (08:38→20:20)
[2018-12-01] MEDS: DOCUSATE SODIUM 100 MG CAP PO SCH ×2 (08:38→20:20)
[2018-12-01] MEDS: CHOLECALCIFEROL 1000 UNIT TAB PO SCH (08:38)
[2018-12-01] MEDS: TAMSULOSIN HCL 0.4 MG CAP PO SCH (08:38)
[2018-12-01] MEDS: POLYETHYLENE GLYCOL 17 GM PKT PO SCH (08:38)
[2018-12-01] MEDS ORDERED: ACETAMINOPHEN(*)1000 MG/100 ML 100 ML IVPB PRN (10:05)
[2018-12-01 10:26] VITALS: Ht 160 cm; Wt 59.2 kg
--- NOTE | 2018-12-01 10:32 | Hospitalist Progress Note ---
Subjective Progress Notes Subjective The patient was doing well and ready for discharge. She states she went to the restroom and strained a bit to pass a BM and developed recurrence of her right flank pain which is severe. With this she is feeling a bit nauseated. The patient is exactly the same as the pain she was having on admission. Physical Exam Vital Signs Date Time Temp Pulse Resp B/P (MAP) Pulse Ox O2 Delivery O2 Flow Rate FiO2 12/01/18 09:23 93 12/01/18 07:30 Room Air 12/01/18 06:00 97.9 72 16 134/66 (88) 2.0 Intake and Output 12/01/18 06:59 Intake Total 2697 ml Output Total 1100 ml Balance 1597 ml Intake Oral 1276 ml IV Total 1421 ml Output Urine Total 1100 ml # Voids 8 # Bowel Movements 1 General Appearance: Alert, Awake, Other (Holding right side. Appears to be in pain.) Neuro: No Gross deficits Eyes: PERRLA Cardiovascular: Regular Rate and Rhythm Respiratory: Clear to Auscultation GI: Soft and Non-Tender, Other (Markedly tender over RUQ to light palpation without rebound or guarding.) Extremities: Warm, Perfused Psych: Appropriate Mood & Affect Result Diagram: 11/30/18 0150 11/30/18 0530 Assessment and Plan Problems: (1) Hematuria Assessment & Plan: Likely due to spontaneous hemorrhage due to elevated INR, mass can not be excluded. Anticoagulation reversed with vitamin K PO. Dr Giraldo is following. Her urine did clear this am but she developed recurrence of her R flank pain as noted above. Will monitor and watch urine. (2) Supratherapeutic INR Assessment & Plan: Reportedly up to 5.9 recently. Warfarin held and reversed anticoagulation in anticipation of intervention and presence of minor bleeding. Dr. Giraldo plans to do a procedure as an outpatient on Sunday. (3) Hydroureter Assessment & Plan: Likely due to clot in proximal R ureter. Dr Giraldo will do cystoscopy as an outpatient. Will continue to hold Coumadin until after this procedure. Tamsulosin started. Creatinine improved. (4) Afib Assessment & Plan: On diltiazem and metoprolol. Holding warfarin. (5) HTN (hypertension) Assessment & Plan: On metoprolol, holding spironolactone and lisinopril until obstruction resolved. (6) CKD (chronic kidney disease) Assessment & Plan: Cr 1.4 at baseline, will monitor closely. Improved today at 1.2. Time Spent on Plan of Care: < 30 min Exam Sepsis Risk: No Definite Risk Problem Qualifiers (1) Hematuria: Hematuria type: gross Qualified Codes: R31.0 - Gross hematuria (2) CKD (chronic kidney disease): Chronic kidney disease stage: unspecified stage Qualified Codes: N18.9 - Chronic kidney disease, unspecified AIDAN HANKINS MD Dec 01, 2018 10:32
[2018-12-01] MEDS ORDERED: fentaNYL CITR 100 MCG/2 ML AMP IVP PRN (11:20)
[2018-12-01 14:51] VITALS: BP 129/65
[2018-12-01] MEDS ORDERED: LISI20TA29 PO (16:20)
[2018-12-01] MEDS: NS(*) 0.9% 1000 ML BAG 1,000 ML IV PRN (16:22)
[2018-12-01 19:03] VITALS: BP 118/79
[2018-12-01] MEDS: RANITIDINE HCL 150 MG TAB PO SCH (20:20)
[2018-12-02 03:30] VITALS: BP 132/90
[2018-12-02] MEDS: NS(*) 0.9% 1000 ML BAG 1,000 ML IV PRN (05:08)
[2018-12-02 05:52] LABS: INR 1.11
[2018-12-02 07:53] VITALS: BP 150/93
[2018-12-02] MEDS ORDERED: WARF-1 PO (08:22)
[2018-12-02] MEDS ORDERED: LISI20TA29 PO (08:22)
--- NOTE | 2018-12-02 08:35 | Hospitalist Depart ---
Discharge Summary Reason for Hosp/Final Diag: (1) Hematuria Hospital Course & Plan: Likely due to spontaneous hemorrhage due to elevated INR, but lesion/mass can not be excluded. Her chronic anticoagulation was reversed with oral vitamin K. Her urine did initially clear, but she developed recurrence of her right flank pain. She was further monitored and she had resolution of her pain/hematuria once again. Dr. Giraldo (urology) did see her during this hospitalization. He will be following up closely with her as an outpatient and has an appointment planned for tomorrow (Sunday12/03/18). She will stay off her warfarin at least until she is able to discuss this with her primary care provider Dr. Murillo. We will make an appointment for Mrs. Overton to see Dr. Murillo within the next 3-4 days. (2) Supratherapeutic INR Hospital Course & Plan: Reportedly up to 5.9 recently. The warfarin was held and anticoagulation reversed. She will not resume her anticoagulation therapy until she discusses this further with Dr. Murillo and Dr. Giraldo. (3) Hydroureter Hospital Course & Plan: Likely due to clot in proximal right ureter. Dr. Giraldo has evaluated the patient and plans on close follow up as an outpatient. We will continue to hold Coumadin. Tamsulosin was given short term during hospitalization. Her creatinine did improve with resolution of the bleeding /clots. (4) Afib Status: Chronic Hospital Course & Plan: On diltiazem and metoprolol for rate control. We are holding her usual warfarin at least until she discusses it with Dr. Murillo. (5) HTN (hypertension) Hospital Course & Plan: On metoprolol, diltiazem, and spironolactone. We are currently holding her usual lisinopril as her BPs were well controlled during her stay. She may need to resume this in the future, but we will leave this up to Dr. Murillo to decide. (6) CKD (chronic kidney disease) Hospital Course & Plan: Her creatinine appears to be 1.4 at baseline. It is slightly improved (1.2) with the above modifications. Departure Weight (Pounds): 130 Weight (Ounces): 9.0 Result Diagram: 11/30/18 0150 11/30/18 0517 Item Value Date Time Sodium Level 139 mmol/L 11/29/18 1120 Potassium Level 4.2 mmol/L 11/29/18 1120 Chloride Level 104 mmol/L 11/29/18 1120 Carbon Dioxide Level 26 mmol/L 11/29/18 1120 Blood Urea Nitrogen 20 mg/dl H 11/29/18 1120 Creatinine 1.30 mg/dl H 11/29/18 1120 Glomerular Filtration Rate Calc 39.4 11/29/18 1120 Random Glucose 86 mg/dl 11/29/18 1120 Calcium Level 9.5 mg/dl 11/29/18 1120 Total Bilirubin 0.8 mg/dl 11/29/18 1120 Aspartate Amino Transf (AST/SGOT) 24 U/L 11/29/18 1120 Alanine Aminotransferase (ALT/SGPT) 32 U/L 11/29/18 1120 Alkaline Phosphatase 117 U/L 11/29/18 1120 Total Protein 6.8 g/dl 11/29/18 1120 Albumin 4.2 g/dl 11/29/18 1120 Prothrombin Time 53.3 seconds H 11/25/18 0820 Prothromb Time International Ratio 5.72 *H 11/25/18 0820 INR (Fingerstick) 3.9 11/28/18 1147 Prothrombin Time 20.8 seconds H 11/29/18 1120 Prothromb Time International Ratio 1.77 11/29/18 1120 Prothromb Time International Ratio 1.61 11/30/18 0150 Prothrombin Time 19.4 seconds H 11/30/18 0150 Prothrombin Time 19.1 seconds H 11/30/18 0810 Prothromb Time International Ratio 1.58 11/30/18 0810 Prothromb Time International Ratio 1.19 12/01/18 0533 Prothrombin Time 15.1 seconds H 12/01/18 0533 Prothrombin Time 14.3 seconds 12/02/18 0512 Prothromb Time International Ratio 1.11 12/02/18 0512 Urine Color Red 11/29/18 1020 Urine Appearance Dark 11/29/18 1020 Urine pH 6.0 11/29/18 1020 Urine Specific [place] 1.020 11/29/18 1020 Urine Protein >=300 mg/dL 11/29/18 1020 Urine Ketones 15 mg/dL 11/29/18 1020 Urine Blood Large 11/29/18 1020 Urine Nitrite Positive 11/29/18 1020 Urine Bilirubin Moderate 11/29/18 1020 Urine Urobilinogen 2.0 E.U./dL 11/29/18 1020 Urine Leukocytes Large 11/29/18 1020 Urine Mucus None /HPF 11/29/18 1040 Urine Bacteria Negative /HPF 11/29/18 1040 Urine Squamous Epithelial Cells None /LPF 11/29/18 1040 Urine WBC 2-3 /HPF 11/29/18 1040 Urine RBC Tntc /HPF 11/29/18 1040 Urine Leukocyte Esterase Trace H 11/29/18 1040 Urine Urobilinogen 0.2 mg/dL 11/29/18 1040 Urine Bilirubin Negative 11/29/18 1040 Urine Nitrite Negative 11/29/18 1040 Urine Blood Large H 11/29/18 1040 Urine Ketones Negative mg/dL 11/29/18 1040 Urine Glucose (UA) Negative mg/dL 11/29/18 1040 Urine Protein 300 mg/dL 11/29/18 1040 Urine Specific [place] 1.025 11/29/18 1040 Urine pH 6.5 pH 11/29/18 1040 Urine Clarity Cloudy 11/29/18 1040 Urine Color Red 11/29/18 1040 Urine Mucus None /HPF 11/30/18 0248 Urine Bacteria Negative /HPF 11/30/18 0248 Urine Squamous Epithelial Cells None /LPF 11/30/18 0248 Urine WBC None /HPF 11/30/18 0248 Urine RBC 9709 /HPF 11/30/18 0248 Urine Leukocyte Esterase Negative 11/30/18 0248 Urine Urobilinogen 0.2 mg/dL 11/30/18 0248 Urine Bilirubin Negative 11/30/18 0248 Urine Nitrite Negative 11/30/18 0248 Urine Blood Large 11/30/18 0248 Urine Ketones Negative mg/dL 11/30/18 0248 Urine Glucose (UA) Negative mg/dL 11/30/18 0248 Urine Protein 100 mg/dL 11/30/18 0248 Urine Specific [place] 1.010 11/30/18 0248 Urine pH 7.0 pH 11/30/18 0248 Urine Clarity Cloudy 11/30/18 0248 Urine Color Red 11/30/18 0248 Sodium Level 139 mmol/L 11/30/18 0517 Potassium Level 3.6 mmol/L 11/30/18 0517 Chloride Level 106 mmol/L 11/30/18 0517 Carbon Dioxide Level 24 mmol/L 11/30/18 0517 Blood Urea Nitrogen 21 mg/dl H 11/30/18 0517 Creatinine 1.20 mg/dl H 11/30/18 0517 Glomerular Filtration Rate Calc 43.2 11/30/18 0517 Random Glucose 103 mg/dl 11/30/18 0517 Calcium Level 9.5 mg/dl 11/30/18 0517 Albumin 4.5 g/dl 11/30/18 0150 Total Protein 7.7 g/dl 11/30/18 0150 Alkaline Phosphatase 133 U/L H 11/30/18 0150 Alanine Aminotransferase (ALT/SGPT) 25 U/L 11/30/18 0150 Aspartate Amino Transf (AST/SGOT) 25 U/L 11/30/18 0150 Calcium Level 9.8 mg/dl 11/30/18 0150 Total Bilirubin 0.6 mg/dl 11/30/18 0150 Random Glucose 133 mg/dl H 11/30/18 0150 Glomerular Filtration Rate Calc 36.2 11/30/18 0150 Creatinine 1.40 mg/dl H 11/30/18 0150 Blood Urea Nitrogen 24 mg/dl H 11/30/18 0150 Carbon Dioxide Level 23 mmol/L 11/30/18 0150 Chloride Level 104 mmol/L 11/30/18 0150 Potassium Level 3.6 mmol/L 11/30/18 0150 Sodium Level 139 mmol/L 11/30/18 0150 White Blood Count 6.0 k/uL 11/29/18 1120 Hemoglobin 13.7 g/dL 11/29/18 1120 Hematocrit 42.1 % 11/29/18 1120 Platelet Count 278 K/uL 11/29/18 1120 Platelet Count 282 K/uL 11/30/18 0150 Hematocrit 43.3 % 11/30/18 0150 Hemoglobin 14.3 g/dL 11/30/18 0150 White Blood Count 7.3 k/uL 11/30/18 0150 Imaging PATIENT NAME: June Overton : 1940 MR: [id number] V: [id number] EXAM DATE: ORDERING PHYSICIAN: JOS PAYNE TECHNOLOGIST: Location: [facility] Patient: June Overton : 1940 Visit/Account:[id number] Date of Sevben: 11/30/2018 CT ABDOMEN PELVIS W/O CON HISTORY: Lower abdominal pain, now right lower quadrant. Hematuria. COMPARISON: 05/09/2018 and studies dating to 05/29/2006. TECHNIQUE: Axial images were obtained from the lung bases through the symphysis pubis without intravenous contrast. Sagittal and coronal reformats were performed. One of the following dose optimization techniques was utilized in the performance of this exam: Automated exposure control; adjustment of the mA and/or kV according to the patient's size; or use of an iterative reconstruction technique. Specific details can be referenced in the facility's radiology CT exam operational policy. CONTRAST: None. FINDINGS: Lower chest: Normal. Liver: Normal. Gallbladder/biliary: Normal. Pancreas: Normal. Spleen: Normal. Adrenals: Normal. Kidneys/ureters/bladder: There is mild right hydronephrosis and dilation of the proximal right ureter. There is mild periureteral stranding. No obstructing or nonobstructing calculus. There is high density in a right upper pole calyx (axial image 56 series 2, sagittal image 52, and coronal image 46). There is a 2.2 cm exophytic cyst arising from the inferior right renal cortex. There are small hyperdense cysts of the left kidney. The left ureter and the bladder are normal. GI/mesentery/peritoneal cavity: There is a small to moderate type I hiatal hernia. There are postsurgical changes at the gastroesophageal junction, unchanged. There is no bowel obstruction. There is no wall thickening or pericolonic stranding. The appendix is not identified. There is no pericecal inflammatory change. There is pancolonic diverticulosis without diverticulitis. Vessels: There is mild atherosclerotic disease. No aneurysm. Nodes: Normal. Pelvis: Uterus is absent. Vaginal cuff is normal. Ovaries are normal. There are numerous phleboliths. Bones/vertebra/soft tissues: There is rightward curvature of the thoracolumbar spine. There is degenerative disc disease, greatest at L2-3. There are endplate irregularity and sclerosis at this level. There is severe loss of disc height at this level and at L5-S1. There is 3 mm retrolisthesis of L2 compared to L3. There is stable mild wedging of L1. IMPRESSION: 1. Mild right hydronephrosis and dilation of the proximal right ureter without obstructing or nonobstructing calculus. However, there is high density in a right upper pole calyx, likely hemorrhage. Patient is on Coumadin, and potentially this could be spontaneous hemorrhage, although cannot exclude underlying lesion. If it would alter clinical management, direct visualization could be performed for further evaluation. The hydronephrosis and dilation of the proximal right ureter may be due to a clot in the ureter, although ureteral clot is not discretely visualized. 2. Pancolonic diverticulosis without diverticulitis. 3. Small to moderate type I hiatal hernia. These findings were discussed by phone with JOS PAYNE on 11/30/2018 3:15 AM. Report Dictated By: Anny Starks at 11/30/2018 2:59 AM Report E-Signed By: Anny Starks at 11/30/2018 3:21 AM WSN:[id number] Condition: Improved Discharge: Home, Self Care Time Spent: > 30 min Discharge Instructions Home Meds Active Scripts Lisinopril (LISINOPRIL) 20 Mg Tablet, 20 MG PO QDAY for 30 Days, #30 TAB DO NOT TAKE until discuss with Dr. Murlilo. Prov:LILLIAN HANKINS MD 12/02/18 Warfarin Sodium (COUMADIN) 5 Mg Tablet, 5 MG PO DIRECTED for 30 Days, #30 TAB 4 Refills DO NOT TAKE until discuss with Dr. Murilol. Prov:LILLIAN HANKINS MD 12/02/18 Spironolactone (SPIRONOLACTONE) 25 Mg Tablet, 0.5 TAB PO QAM for 90 Days, #45 TAB 4 Refills Prov:MARSHALL MURILLO MD 11/18/18 Ranitidine Hcl (RANITIDINE HCL) 150 Mg Tablet, 150 MG PO QHS for 90 Days, #90 TAB Prov:MARSHALL MURILLO MD 10/07/18 Diltiazem Hcl (DILTIAZEM 24HR ER) 240 Mg Cap.er.24h, 240 MG PO QDAY for 90 Days, #90 CAP.SR.24H 4 Refills Prov:MARSHALL MURILLO MD 07/15/18 Metoprolol Tartrate (METOPROLOL TARTRATE) 25 Mg Tablet, 1 TAB PO BID for 30 Days, #180 TAB 4 Refills Prov:OLIVIA RICHMOND PHARMD 01/09/18 Reported Medications Cholecalciferol (Vitamin D3) (VITAMIN D-3) 2,000 Unit Capsule, 1 CAP PO QDAY, CAPSULE 11/28/18 Oxygen (OXYGEN) Inha, 2 L INH HS, L 12/26/17 Discontinued Reported Medications Cholecalciferol (Vitamin D3) (VITAMIN D3) Unknown Strength Tablet, 1 TAB PO, TAB 05/02/18 Discontinued Scripts Lisinopril (LISINOPRIL) 20 Mg Tablet, 1 TAB PO BID for 90 Days, #90 TAB 4 Refills Prov:MARSHALL MURILLO MD 08/08/18 Follow up Referrals: Internal Medicine @ [facility] with MARSHALL MURILLO MD Urology @ Urology with LACY GIRALDO MD Diet: Regular Activity: As Tolerated Special Instructions: Follow up with Dr. Giraldo tomorrow. Follow up with Dr. Murillo in next 3-4 days. Copies to: MARSHALL MURILLO MD; LACY GIRALDO MD ; Venous Thromboembolism Antithrombotics Is Pt On Any Antithrombotics?: No Problem Qualifiers (1) Hematuria: Hematuria type: gross Qualified Codes: R31.0 - Gross hematuria (2) CKD (chronic kidney disease): Chronic kidney disease stage: unspecified stage Qualified Codes: N18.9 - Chronic kidney disease, unspecified LILLIAN HANKINS MD Dec 02, 2018 08:35
[2018-12-02] MEDS: POLYETHYLENE GLYCOL 17 GM PKT PO SCH (09:05)
[2018-12-02] MEDS: DILTIAZEM CD 120 MG CAPCR PO SCH (09:06)
[2018-12-02] MEDS: DOCUSATE SODIUM 100 MG CAP PO SCH (09:07)
[2018-12-02] MEDS: TAMSULOSIN HCL 0.4 MG CAP PO SCH (09:07)
[2018-12-02] MEDS: CHOLECALCIFEROL 1000 UNIT TAB PO SCH (09:08)
[2018-12-02] MEDS: METOPROLOL TART 50 MG TAB PO SCH (09:08)
[2018-12-06] MEDS ORDERED: WARF-1 PO (13:04)
== END 2018-12-02 10:45 | disposition home or self-care (01) | DRG 696 ==
LOC: ER 01:49 → MED 04:07
PROVIDERS: ADMIT Internal Medicine; ATTEND Internal Medicine
DX: R31.9 Hematuria, unspecified (principal); D68.32 Hemorrhagic disorder due to extrinsic circulating anticoagulants; T45.515A Adverse effect of anticoagulants, initial encounter; Y92.009 Unspecified place in unspecified non-institutional (private) residence as the place of occurrence of the external cause; N13.4 Hydroureter; I48.2 Chronic atrial fibrillation; Z79.01 Long term (current) use of anticoagulants; I12.9 Hypertensive chronic kidney disease with stage 1 through stage 4 chronic kidney disease, or unspecified chronic kidney disease; N18.9 Chronic kidney disease, unspecified; N28.89 Other specified disorders of kidney and ureter; N13.39 Other hydronephrosis; G47.33 Obstructive sleep apnea (adult) (pediatric); K21.9 Gastro-esophageal reflux disease without esophagitis; M19.90 Unspecified osteoarthritis, unspecified site; E03.9 Hypothyroidism, unspecified
CPT/HCPCS: 36415; 74176; 81001; 82040; 82247; 82310; 82374; 82435; 82565; 82947; 84075; 84132; 84155; 84295; 84450; 84460; 84520; 85025; 85610; 96361; 96374; 99285; J0131; J2405; J2765; J7030

== ENCOUNTER → 2018-11-30 | Outpatient (CLI) | payer MEDICARE, OTHER ==
[2018-12-01 10:26] VITALS: BMI 23.0
== END ==
LOC: AMB 01:31
PROVIDERS: ATTEND Nurse Practitioner
DX: R10.32 Left lower quadrant pain (principal)
CPT/HCPCS: A0425; A0427

== ENCOUNTER → 2018-12-06 | Outpatient (CLI) | payer MEDICARE, OTHER ==
[2018-12-01 10:26] VITALS: BMI 23.0
[~2018-12-06] MED LIST changes: +IOPAMIDOL 76% 150 ML INFUS BTL 150 ML ONE; +NS(*) 0.9% 50 ML BAG 50 ML ONE
--- NOTE | 2018-12-06 12:01 | RADIOLOGY IMAGING REPORT ---
FACILITY: [facility] [place] PATIENT NAME: June Overton : 1940 MR: [id number] V: [id number] EXAM DATE: ORDERING PHYSICIAN: LACY GRANADOS [place]CHN[place] [facility] [place]: [place] : 1940 Visit/Account:[id number] Date of Sevice: 12/06/2018 CT ABDOMEN PELVIS W & W/O CONTRAST HISTORY: Gross hematuria from over coagulation. Questionable right renal upper pole filling defect TECHNIQUE: Axial images acquired through the abdomen/pelvis both with and without IV contrast.. Yumiko nal and sagittal reformatting also performed.Dose Lowering Technique One of the following dose optimization techniques was utilized in the performance of this exam: Autom ated exposure control; adjustment of the mA and/or kV according to the patient's size; or use of an i terative reconstruction technique. Specific details can be referenced in the facility's radiology C T exam operational policy. CONTRAST: 75 mL Isovue-370 COMPARISON: November 30, 2018 FINDINGS: Visualized lung bases: Negative. Hepatobiliary: Negative. Spleen: Negative. Adrenals: Negative. Pancreas: Negative. Kidneys ureters and bladder: Previously noted high density material within the posterior upper pole c demetrius of the right kidney is no longer seen. No filling defects are identified within the renal colle cting systems bilaterally. There are extrarenal pelves bilaterally. The proximal portion of the rig ht ureter is extremely ectatic. 2.2 cm lower pole right renal cyst appears unchanged. There are tin y hypodensities in the left kidney likely representing additional cysts although are too small to tamra racterize. Genitalia: Hysterectomy GI: Again noted is colonic diverticulosis without evidence of diverticulitis. Again noted is a smal l to moderate hiatal hernia. Postsurgical changes at the GE junction also again noted Vessels/spaces/nodes: Mild atherosclerotic calcifications again noted. No pathologic-appearing marv opathy identified Bones/soft tissues: There is a dextroconvex scoliosis lumbar spine with associated spondylotic cantu es unchanged when compared the prior study Additional findings: None pertinent. IMPRESSION: No filling defects are identified in the renal collecting systems bilaterally. There has been interval resolution of the right-sided hydronephrosis. Colonic diverticulosis without evidence of diverticulitis Small to moderate hiatal hernia with postsurgical changes at the GE junction Additional chronic findings as described Report Dictated By: Kassie Snow MD at 12/06/2018 11:45 AM Report E-Signed By: Kassie Snow MD at 12/06/2018 11:55 AM MICHELLEN:CHLOE
== END ==
LOC: CT 00:32
PROVIDERS: ATTEND Urology
DX: K57.30 Diverticulosis of large intestine without perforation or abscess without bleeding (principal); K44.9 Diaphragmatic hernia without obstruction or gangrene
CPT/HCPCS: 74178; J7050; Q9967

== ENCOUNTER 2018-12-20 16:00 | Outpatient (RCR) | payer MEDICARE, OTHER ==
[2018-12-01 10:26] VITALS: BMI 23.0
--- NOTE | 2018-12-19 10:41 | PT INITIAL EVALUATION ---
MEDICAL DIAGNOSIS: Vestibular Dysfunction TREATMENT DIAGNOSIS: Vestibular Dysfunction, BPPV DATE OF ONSET: 12/19/18 SUBJECTIVE: June is a 78 year old female presenting to physical therapy following 2+ week onset of dizziness that is most present when she lays down at night. Pt reports that it is usually when she first lays back and that it lasts 5 minutes and then goes away. Pt reports occasional double vision as well and feeling unstable with the dizziness. REHAB PROBLEM LIST: Impaired Bed Mobility Impaired Transfers Decreased Balance Decreased Function Decreased ADL's Decreased Mobility PREVIOUS MEDICAL HISTORY: See EMR OCCUPATION: OBJECTIVE: Pt has no nystagmus at rest. Lateral gaze nystagmus is present to the L. Sensation: No change in facial sensation Special Tests: Vertebral Artery test B (-) Mobility: Dizziness with transfers from supine<>seated Gait: No abnormality of gait or slowed speed. Balance: Girard Hallpike R (-), L (+) Outcome Measure" Dizziness Handicap Inventory (DHI): ASSESSMENT: June presents with signs and symptoms of left sided BPPV as outlined by the above listed deficits. Physical therapy is indicated to improve pt function with ADL's. Short Term Goals In 2 weeks pt will have no reports of dizziness with changed in position or ADL's. In 2 weeks pt will be decrease DHI score to <5/50 for improved function with ADL's. Patient's Goals Decrease dizziness. PLAN: Patient to be seen for Manual Therapy/STM/MET Spinal Stabilization Stretching Neuromuscular Re-ed Posture/Body mechanics Gait Trg/Balance Trg Home Exercise Program 3x/Week for 2 Weeks If you have any questions, comments, or concerns about this report or plan, please contact me at . Thank you, Stefani Garcia, PT, DPT, CLT MTDD
[~2018-12-20 16:00] MED LIST changes: -IOPAMIDOL 76% 150 ML INFUS BTL 150 ML ONE; -NS(*) 0.9% 50 ML BAG 50 ML ONE
--- NOTE | 2018-12-25 09:37 | PT PLAN OF CARE ---
Physician: Tammi Ivey MD Patient is being seen: 2-3x/Week Therapist: Stefani Garcia PT, DPT, CLT Medical Diagnosis: Vestibular Dysfunction Treatment Diagnosis: Vestibular Dysfunction, BPPV Date of Onset: 12/19/18 Date of Initial Evaluation: 12/19/18 Date patient was last seen: 12/25/18 Number of treatments: 3 Number of cancellations/No shows: 0 INTERVENTIONS: Manual Therapy/STM/MET Spinal Stabilization Stretching Neuromuscular Re-ed Posture/Body mechanics Gait Trg/Balance Trg Home Exercise Program GOALS: In 2 weeks pt will have no reports of dizziness with changed in position or ADL's. MET In 2 weeks pt will be decrease DHI score to <5/50 for improved function with ADL's. MET PATIENT'S GOAL: Decrease dizziness. Status of Patient's Goals: 2/2 MET Patient Compliance: Good Prognosis: Good Reasons for discharge from therapy: June is to discharge from physical therapy at this time secondary to competition of 2/2 functional goals. At the time of discharge pt only had lingering symptoms with orthostatic hypotension related positional changes, but no longer exhibited symptoms of BPPV. Pt is to monitor symptoms and seek further treatment if any dizziness recurs. Pt was experiencing back pain at the time of discharge and it was recommended to pt to seek PT intervention if it continues. OBJECTIVE: Pt has no nystagmus at rest or with lateral gaze Sensation: No change in facial sensation Special Tests: Vertebral Artery test B (-) Outcome Measure" Dizziness Handicap Inventory (DHI): If you have any questions, comments, or concerns about this report or plan, please contact me at . Thank you, Stefani Garcia PT, DPT, CLT [facility] SYSTEMMode
--- NOTE | 2018-12-25 16:41 | SLP BEDSIDE SWALLOW EVALUATION ---
CLINICAL DYSPHAGIA ASSESSMENT Physician: Tammi Ivey MD Clinician: Cindi Bañuelos MS, [facility]-[employer] Type of Assessment: Clinical Dysphagia Evaluation Patient: June Overton : [birth year] Evaluation Date: 12/25/18 BACKGROUND The pt is an 78-year-old female referred to outpatient [facility] [employer] services at [facility] by her primary care physician due to progressive swallow difficulties characterized by intermittent choking episodes. A clinical dysphagia assessment was completed during the pts initial appointment. Diagnosis: dysphagia Past Medical History: hiatal hernia, weight loss, HTN, afib, CKD Prior Level of Function: pt is independent with all functions, including IADLs. Consumes a regular diet, thin liquids, and whole medications at baseline with avoidance of dry, crunchy consistencies. COGNITION/COMMUNICATION: Pain Scale (0-10): 0 LOC / Participation: alert, participatory, humorous Cognitive- Linguistic Deficits: mildly delayed processing speed; however, this may be reflective of hearing difficulty vs underlying cognitive linguistic impairment Functional Communication: Pt able to provide comprehensive medical history, asked appropriate questions, made appropriate comments, exhibited appropriate social interaction skills, no significant deficits observed in functional communication skills throughout assessment. SPEECH / VOICE / LANGUAGE Aphasia: Non-aphasic Apraxia: Non-apraxic Dysarthric: Non-dysarthric Overall intelligibility: 100% Vocal Deficits: None DYSPHAGIA Sialorrhea: No Xerostomia: No Supplemental Oxygen Use: No COPD Dx: yes. Additional dx of LISETTE. Pain with Swallow: Denies Clinical Swallow Assessment: A clinical swallow assessment was completed in the ST office. Oromotor exam was unremarkable with adequate strength, speed, ROM, and perceived sensation of oral structures. During informal interview procedures, the pt reported hx of a hiatal hernia repair and esophageal dilation. She is not currently taking medications for gastroesophageal reflux disease (GERD). Discussed report of choking episodes associated with consumption of meats and dry, crunchy consistencies. Pt does not perceive that choking obstructs respiration, but describes these episodes as feeling like food gets lodged down low, gesturing towards her mid- sternal region. She also perceives intermittent sensation of residual material in the pharynx. The pt was analyzed with PO trials of the following textures: thin liquids via cup, mechanically altered solids, and regular solid textures. Majority of trials were tolerated with no overt indicators of aspiration. Delayed cough was noted following multiple sips of thin liquids. The pt did not experience any episodes of choking, sensation of residual material in the pharynx, or sensation of residual material in the esophagus throughout direct assessment. Overall, the pt presents with suspected pharyngoesophageal dysphagia due to delayed throat clearing with trials of thin liquids, report of globus sensation at mid-sternum, intermittent perception of pharyngeal residue, and history of hiatal hernia repair with possible esophageal dilation (unable to verify dilation in EMR). Recommend completion of further, objective assessment of swallow anatomy and physiology via referral for a modified barium swallow study. EAT-10: The pt completed the Eating Assessment Tool (EAT-10) to obtain information regarding the functional impact of her swallowing difficulties on her quality of life. The pt achieved a score of 15; (A total score of 3 or greater may indicate swallowing problems). Score is generated via pt response to 10 questions based on a 0-4 subjective rating scale. A score of 0 indicates no problem, whereas a score of 4 indicates a severe problem. The pt indicated his swallowing issues result in a severely elevated level of effort to swallow solid textures, and a moderately increased level of effort to swallow liquids and medications. The pt further indicated that her swallowing problem interferes with her ability to go out for meals, results in increased stress, and affects the pleasure of eating to a moderate degree. Dysphagia Outcome Severity Scale: Level : 6; modified independence, avoid problematic foods ST ASSESSMENT SUMMARY Aspiration Risk: Mildly elevated with suspicion of pharyngoesophageal dysphagia, delayed coughing with consumption of thin liquids. Speech Therapy Need Recommend completion of objective, modified barium swallow study prior to establishment of goals to address dysphagia. Interventions are necessary minimize this pts risk for aspiration, choking, and respiratory compromise, and to screen for possible GI referral. RECOMMENDATIONS 1. Diet: regular solids, thin liquids. Avoid problematic foods 2. Strategies: Upright position during and 45 min after PO intake, avoid eating/drinking 2-3 hours prior to bedtime, elevate HOB to 30 degree angle, eat slowly, small bites/sips, and 1 bite at a time. 3. Medications: continue as tolerated. 4. Referrals: start with completion of MBSS, may benefit from future GI referral PLAN OF CARE Short Term Goals 1. The patient will participate in an objective, modified barium swallow study to support identification of potential oral and/or pharyngeal weakness, establish need for diet texture modifications, and develop appropriate, patient- specific compensatory strategies to minimize s/sx of dysphagia and aspiration. Sap Portal Consultant Goals: The patient will consume regular food and liquid diet without s/s of dysphagia. Rehabilitation Prognosis: Good. Patient demonstrates good insight, motivation to alleviate symptoms. Thank you for this referral. Please call [phone] Lu Bañuelos M.S., CCC-[employer] Physician Signature Date [*] MTDD
[2019-01-08] MEDS ORDERED: RANI-318 PO (09:55)
== END 2018-12-20 18:00 | disposition home or self-care (01) ==
LOC: PT 16:00
PROVIDERS: ATTEND Family Medicine
DX: R42 Dizziness and giddiness (principal)
CPT/HCPCS: 97161

== ENCOUNTER → 2019-01-09 | Outpatient (CLI) | payer MEDICARE, OTHER ==
[2018-12-01 10:26] VITALS: BMI 23.0
[~2019-01-09] MED LIST changes: +BARIUM SULFATE 148 GM POWDER ONE; +BARIUM SULFATE 240 ML ORAL SUS (NECTAR) ONE
--- NOTE | 2019-01-09 13:50 | SLP MODIFIED BARIUM SWALLOW ---
MODIFIED BARIUM SWALLOW STUDY REPORT Ordering Physician: Tammi Ivey MD Clinician: Cindi Bañuelos MS, CCC-PROCESS CHECKER Type of Assessment: [facility] [place] Patient: June Overton : [birth year] Evaluation Date: 01/09/19 BACKGROUND The patient is an 78 year old female referred for a modified barium swallow study (MBSS) following completion of a clinical swallow assessment in the outpatient clinic at [facility]. Pt has been experiencing progressive swallowing difficulties characterized by intermittent choking episodes. During her clinical swallow assessment, the pt presented with suspected pharyngoesophageal dysphagia characterized by delayed throat clearing with trials of thin liquids, report of globus sensation at mid-sternum, and history of hiatal hernia repair with possible esophageal dilation (unable to verify in EMR). Completion of further, objective assessment of swallow anatomy and physiology was recommended via participation in a modified barium swallow study. ASSESSMENT Diagnosis: dysphagia Past Medical Hx: hiatal hernia, weight loss, HTN, afib, CKD Pain Scale (0-10): 0 LOC / Participation: Alert and cooperative. Follows instructions: Yes, no difficulty Orientation: A&O x4 Sialorrhea: No Xerostomia: No Hygiene: WNL Supplemental Oxygen Use: No COPD Dx: Yes, additional dx of LISETTE. Pain with Swallow: Denies Oral mechanism examination: unremarkable with adequate strength, speed, ROM, and perceived sensation of oral structures. Overall Impression: minimal pharyngeal dysphagia, suspected esophageal dysphagia In conjunction with radiology, the pt was seated in the lateral view and analyzed with self-administered trials of the following consistencies: thin liquids via single and consecutive cup sips, pureed solids, mechanically altered solids, advanced solids, and regular solids. Pt presented with normal oral phase of swallow, No deficits observed in oral preparation, containment, transit, or oral cavity clearance. Pharyngeally, pt exhibited mild reduction in hyolaryngeal excursion with subsequently reduced epiglottic inversion. This resulted in incomplete contact of the epiglottis against the arytenoid cartilages, with flash penetration of thin liquid material into the laryngeal vestibule during the swallow. Quantity of penetrated material was minimal, above the vocal folds, and consistently ejected without residue (PAS 2). Pharyngeal phase of swallow was otherwise WNL. Pt was further analyzed in AP view with a 1cm barium pill paired with thin liquids. Contents were slow to pass through the distal esophagus. Radiologist confirmed presence of an oblong shaped hiatal hernia. Of further note, the pt demonstrated a posterior bulging against contrast near the upper esophageal sphincter. 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 The pts symptoms of dysphagia appear primarily esophageal in nature. Recommend GI referral. Penetration/Aspiration Scale (PAS)*: Thin liquids (small, single sips, large sips): Score of 2, Material enters the airway (briefly), remains above the vocal folds, and is ejected from the airway. All other consistencies: Score of 1, Material does not enter airway *(Viry et al. 1996) SUMMARY and RECOMMENDATIONS Aspiration Risk: Minimally elevated. Negative prognostic indicators include history of COPD and history of hiatal hernia with esophageal dysphagia and heightened risk for reflux aspiration. Dysphagia Outcome Severity Scale: Level 6; modified independence. Recommend avoidance of problematic foods, small sip sizes, adherence to general reflux precautions Speech Therapy Need Further, skilled ST interventions not indicated. Provided the pt with a review of MBSS results, including verbal and visual education and a review of recommended compensations with specific emphasis placed on general reflux precautions. RECOMMENDATIONS 1. Diet: regular solids 2. Liquids: thin OK 3. Medications: whole, with water 4. Compensatory Techniques: upright (90 deg) with PO intake, remain upright at least 30 min after PO, elevate HOB to 30 deg angle, avoid eating/drinking at least 2 hours prior to bedtime, consume small bites/sips, one bite/sip at a time, consider more frequent, smaller meals vs larger meals throughout the day. 5. Referrals: GI consult Thank you for this referral. Cindi Bañuelos M.S., CCC-PROCESS CHECKER Speech Therapist [*] XI
--- NOTE | 2019-01-09 17:04 | RADIOLOGY IMAGING REPORT ---
FACILITY: [facility] [place] PATIENT NAME: June Overton : 1940 MR: [id number] V: [id number] EXAM DATE: ORDERING PHYSICIAN: MARSHALL MURILLO TECHNOLOGIST: Location: [facility] Patient: June Overton : 1940 Visit/Account:[id number] Date of Sevice: 01/09/2019 Exam type: ESOPH VIDEO SWALLOWING History: Dysphasia Comparison: None. Findings: The video esophagram was performed by the speech pathologist. This fluoroscopic assistance was provi ded. Patient received thin barium, barium tablet and various barium impregnated food substances. Th ere was trace laryngeal penetration with thin liquids. There is possible esophageal dysphasia. Plea se see the speech pathologist report for complete details. The dose area product was 183.56 micro-Gr ay per meter squared. IMPRESSION: 1. As above Report Dictated By: Kassie Snow MD at 01/09/2019 4:57 PM Report E-Signed By: Kassie Snow MD at 01/09/2019 4:58 PM WSN:[email or web address]
== END ==
LOC: RAD 00:07
PROVIDERS: ATTEND Family Medicine
DX: R13.10 Dysphagia, unspecified (principal)
CPT/HCPCS: 74230

== ENCOUNTER → 2019-02-17 | Outpatient (CLI) | payer MEDICARE, OTHER ==
[2018-12-01 10:26] VITALS: BMI 23.0
[~2019-02-17] MED LIST changes: -BARIUM SULFATE 148 GM POWDER ONE; -BARIUM SULFATE 240 ML ORAL SUS (NECTAR) ONE
--- NOTE | 2019-02-17 09:38 | RADIOLOGY IMAGING REPORT ---
FACILITY: [facility] PATIENT NAME: June Overton : 1940 MR: [id number] V: [id number] EXAM DATE: ORDERING PHYSICIAN: MARSHALL MURILLO TECHNOLOGIST: [place] [facility] [place] : 1940 Visit/Account:[id number] Date of Sevice: 02/17/2019 ANKLE 2 VIEW RIGHT Indication: Right ankle pain Comparison: None. Findings: There are postoperative changes with fusion hardware fusing the tibiotalar joint, and the t alocalcaneal joint. There is resection of the distal fibula. There is no evidence of fracture. The re is generalized osteopenia. Soft tissues are normal. Alignment is maintained. IMPRESSION: 1. Postoperative changes with fusion hardware, with fusion of the tibiotalar and the talocalcaneal j oint. 2. No evidence of fracture. 3. Surgical resection distal fibula. Report Dictated By: Castro Dougherty at 02/17/2019 9:31 AM Report E-Signed By: Castro Dougherty at 02/17/2019 9:33 AM WSN:[email or web address]
== END ==
LOC: LAB 08:48
PROVIDERS: ATTEND Family Medicine
DX: M25.571 Pain in right ankle and joints of right foot (principal); R61 Generalized hyperhidrosis; R63.4 Abnormal weight loss; Z11.4 Encounter for screening for human immunodeficiency virus [HIV]; Z98.890 Other specified postprocedural states
CPT/HCPCS: 36415; 73600; 86580; G0432; 86703